=== PATIENT | female | born 1945 | race Caucasian/White ===

== ENCOUNTER 2021-04-01 09:00 | Outpatient (RCR) | payer MEDICARE, SELFPAY ==
[2021-03-25 09:13] VITALS: BP 132/82
== END 2021-05-03 08:00 | disposition home or self-care (01) ==
LOC: HO.PT 09:00
PROVIDERS: PCP Internal Medicine; Visit Provider Internal Medicine
DX: R42 Dizziness and giddiness (principal)
CPT/HCPCS: 95992; 97110; 97112; 97162

== ENCOUNTER 2021-12-22 15:55 | Outpatient (REF) | payer BC, SELFPAY ==
--- NOTE | ~2021-12-22 | US_ITS ---
EXAMINATION: US VENOUS ULTRASOUND WITH DOPPLER LOWER EXTREMITY, RIGHT CLINICAL INFORMATION: Right calf pain. COMPARISON: No similar priors. TECHNIQUE: Ultrasound of the deep veins is performed from the hip to the calf with compression sonography and color and pulse Doppler assessment. Spectral analysis with color-flow imaging is performed. FINDINGS: There is normal venous compression and respiratory variation and augmented flow. The visualized common femoral vein, superficial femoral vein, profunda femoral vein, popliteal vein, and the trifurcation region shows no evidence of deep venous thrombosis. There is a 2.9 x 0.8 x 2.3 cm right popliteal fossa Villanueva's cyst. If the patient's symptoms persist, followup ultrasound in 5 days 7 days might be of value to exclude proximal propagation from a non-visualized calf vein. US/US venous duplex LE RT IMPRESSION: No DVT demonstrated in the right lower extremity. There is a 2.9 cm right popliteal fossa Villanueva's cyst. This could be follow-up if clinically pertinent.
== END 2021-12-22 15:56 | disposition home or self-care (01) ==
LOC: HO.US 15:55
PROVIDERS: PCP Internal Medicine; Visit Provider Internal Medicine
DX: M79.661 Pain in right lower leg (principal); M71.21 Synovial cyst of popliteal space [Baker], right knee
CPT/HCPCS: 93971

== ENCOUNTER 2025-03-15 08:51 | Outpatient (REF) | payer BC, SELFPAY ==
--- NOTE | ~2025-03-15 | XR_ITS ---
CLINICAL HISTORY: M43.16 - Spondylolisthesis, lumbar region --- Additional Notes or Special Instructions: AP lateral flexion extension Exam: AP, lateral, flexion lateral, and extension lateral views of the lumbar spine. Comparison: None. Findings: Mild convex right thoracolumbar curvature with [id number] convex left mid lumbar curvature. Neutral lateral view demonstrates 13 mm of anterolisthesis of L4 on L5. There is 8 mm of retrolisthesis of T12 on L1 and 7 mm of retrolisthesis of L1 on L2. These areas of spondylolisthesis do not appreciably change with flexion or extension. No acute fracture. Severe degenerative disc disease and degenerative facet disease throughout the lower thoracic spine in the entire lumbar spine. Impression: 1. Multilevel spondylolisthesis without abnormal motion. 2. Severe multilevel degenerative change. This document has been electronically signed by: Shaquille Prado MD on 03/16/2025 08:28:23
== END 2025-03-15 08:52 | disposition home or self-care (01) ==
LOC: HO.HOSX 08:51
PROVIDERS: PCP Internal Medicine; Visit Provider Neurological Surgery
DX: M43.16 Spondylolisthesis, lumbar region (principal); M48.062 Spinal stenosis, lumbar region with neurogenic claudication
CPT/HCPCS: 72110

== ENCOUNTER 2025-03-15 08:51 | Outpatient (AMB) | payer BC, SELFPAY ==
--- OUTSIDE RECORDS SUMMARY | 2025-03-15 08:54 | XMS_ITS | Encounter Summary ---
Author Organization [facility] Address [address] [address] Phone Care Team Providers Care Doctor Of Dental Surgery Name Role Phone Manuel Del Angel MD Primary Care Provider [phone] Michele Soto MD Unavailable Abby Yoo MD Unavailable Blayne Cavanaugh MD Unavailable Encounter Details Date Type Department Care Team (Late st Contact Info) Description 03/10/2021 Procedure Pass Echo Lab [address] [place] [address] Social History Tobacco Use Types Packs/Day Years Used Date Smoking Tobacco: Former Cigarettes 0.3 22 0 02/28/1956 - 02/27/1978 Smokeless Tobacco: Never Alcohol Use Standard Drinks/Week Comments Yes 2 (1 standard drink = 0.6 oz pur e alcohol) Comments No Sex and Gender Information Value Date Recorded Sex Assigned at Female 03/09/2022 8:41 AM EDT Legal Sex Female 10:10 PM EDT Gender Identity Female 03/09/2022 8:41 AM EDT Sexual Orientation Straight 03/09/2022 8: 41 AM EDT documented as of this encounter Plan of Treatment Upcoming Encounters Date Type Department Care Team (Latest Contact Info) Description 05/06/2025 2:30 PM EDT Office Visit [facility] Internal Medicine [address] [facility] [place] [address] Manuel Del Angel MD [address] [place] [id number] 05/21/2025 9:20 AM EDT Office Visit [facility] Orthopedics & Sports Medicine [address] [place] [phone] January Seymour PA-C [address] [place] [address] Orthopedics Sports [facility] [place] [address] [email or web address] 06/14/2025 Procedure Pass OR Admitting Dept - Virtual Department [address] [place] [id number] 06/14/2025 7:30 AM EDT Hospital Encounter OR Admitting Dept - Virtual Department [address] [place] [address] Manoj Pate MD [address] [place], [place] [address]s Sports [facility] [place] [address] [email or web address] 06/14/2025 7:30 AM EDT - 06/14/2025 10:36 AM EDT Surgery OR Admitting Dept - Virtual Department [address] [place] [address] Manoj Pate MD [address] [place], [place] [address]s Sports [facility] [place] [address] [email or web address] ARTHROPLASTY TOTAL KNEE 06/27/2025 9:30 AM EDT Office Visit [facility] Orthopedics & Sports Medicine [address] [place] [phone] Aleks Sams PA-C [address] [place] [address] Orthopedics Sports [facility] [place] [address] [email or web address] 07/30/2025 9:15 AM EST Office Visit [facility] Orthopedics & Sports Medicine [address] [place] [phone] Manoj Pate MD [address] [place] [address] Orthopedics & Sports Medicine, [place] [address] [email or web address] 08/05/2025 8:30 AM EST Office Visit [facility] Internal Medicine [address] [place] [address] Manuel Del Angel MD [address] [place] [address] [email or web address] Scheduled Procedures Name Priority Associated Diagnoses Date/Ti me ARTHROPLASTY TOTAL KNEE Pain Primary osteoarthritis of left knee Genu varum of left lower extremity 06/14/2025 7:30 AM EDT documented as of this encounter Visit Diagnoses Not on filedocumented in this encounter Additional Health Concerns Infection Onset Date Last Indicated Resolved Time CoV-Risk 09/28/2021 09/28/2021 10/08/2021 1:22 AM EST CoV-Risk 05/26/2022 05/26/2022 06/06/2022 1:22 AM EDT Assessment Noted Time PHQ-2 Depression Total Score: 0 03/05/20 8:31 AM EDT documented as of this encounter Care Teams Doctor Of Dental Surgery Relationship Specialty Start Date End Date Manuel Del Angel MD [address] [place] [address] PCP - General 06/13/17 Michele Soto MD [address] [place] [phone] Rheumatology 03/04/20 Abby Yoo MD [address] [address] Obstetrics and Gynecology 10/07/22 Blayne Cavanaugh MD [address] [facility] [address] [phone] [email or web address] 04/18/23 documented as of this encounter Additional Source Comments The information contained in this document represents components of the legal health record. It is not the complete legal health record.[facility]
--- OUTSIDE RECORDS SUMMARY | 2025-03-15 08:54 | XMS_ITS | Clinical Summary ---
Author Organization [facility] Address [address] [place] [phone] Phone Care Team Providers Care Teacher Of The Deaf Name Role Phone Manuel Del Angel MD Primary Care Provider [phone] Allergies Active Allergy Reactions Criticality Noted Date Comments Atorvastatin 09/28/2021 Other reaction(s): muscle aches Codeine Nausea And Vomiting 02/24/2018 Hydrocodone-Acetaminophe n Nausea And Vomiting 01/18/2022 Hydromorphone Other (see comments) 01/22/2021 Ketorolac Nausea And Vomiting,Other (see comments) 02/24/2018 Meperidine Other (see comments) 01/22/2021 Meperidine Hcl 01/22/2021 Morphine Nausea And Vomiting 02/24/2018 Oxycodone Nausea And Vomiting,Other (see comments) 02/24/2018 Oxycodone-Acetaminophen Nausea And Vomiting Rosuvastatin 09/28/2021 Other reaction(s): muscle aches Other reaction(s): muscle aches Medications magnesium oxide (MAG-OX) 400 MG tablet Take 1 tablet by mouth 1 (one) time each day Active Arely, Zingiber officinalis, (Arely Root) 550 MG capsule 1 tab Orally Once a day Active Multiple Vitamins-Minera ls (Multivitamin Adult, Minerals,) tablet Take 1 tablet by mouth 1 (one) time each day Active Mag Oxide-Vit D3-Turmeric [id number] MG-UNIT-MG tablet Take 1 capsule by mouth 1 (one) time each day Active ketoconazole (NIZORAL) 2 % shampoo Active alpha tocopherol (VITAMIN E) 200 units capsule Take 180 Units by mouth in the morning. Active dicyclomine (BENTYL) 10 MG capsule TAKE 1-2 CAPSULES BY MOUTH EVERY 6 HOURS NEEDED 3 Active estradiol (ESTRACE) 0.1 MG/GM vaginal cream PLEASE SEE ATTACHED FOR DETAILED DIRECTIONS 3 Active Cholecalciferol (Vitamin D) 50 MCG (2000 UT) capsule Take 1 tablet by mouth 3 (three) times a week Active Diclofenac Sodium 1 % gel Apply topically Active fexofenadine (Lashawn Allergy) 180 MG tablet Take 180 mg by mouth 1 (one) time each day Active omega-3 (FISH OIL) 1200 MG capsule Take by mouth 1 (one) time each day Active Selenium 200 MCG tablet Take by mouth Activ e UNABLE TO FIND Med Name: Nutrafol 4 caps daily Active Cranberry 125 MG tablet Take 2 tablets by mouth in the morning. Active cetirizine (ZyrTEC) 5 MG chewable tablet Chew 5 mg 1 (one) time each day Active Ciclopirox 1 % shampoo USE DAILY A FACE WASH 4 Active cyanocobalamin (VITAMIN B-12) 100 MCG tablet Take 50 mcg by mouth 1 (one) time each day Active potassium citrate 10 MEQ (1080 MG) CR tablet Take 1 tablet (10 mEq total) by mouth in the morning and 1 tablet (10 mEq total) in the evening. Take with meals. 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 This is associated with sputum production. There is intermittent heartburn. She has a history of very severe heartburn, now status post nisin fundoplication with improved frequency and severity of symptoms, currently off antacids. I wonder whether ongoing acid reflux may be contributing to her symptoms. She agrees to a trial of PPI for 2 to 3 months and return visit to ENT. She would like to see a different ENT physician for a second opinion. I will also CC her campaign coordinator in case they were interested in considering repeat upper endoscopy. If symptoms do not improved with empiric PPI therapy, and if ENT evaluation is unrevealing, we could consider methacholine challenge study and additional imaging, possibly including chest and/or neck CT scans. An empiric trial of inhaler therapies, for instance ICS/LABA, could also be considered given the 12% improvement in FEV1 noted in postbronchodilator measurements, though the clinical presentation is not suggestive of asthma. Lightheadedness 07/07/2022 Overview (01/31/2023): Last Assessment & Plan: Advised to increase fluid intake when lightheaded to see if this would remedy the situation. Since the lightheadedness is episodic, she should look towards situations that might be supporting the lightheadedness for example diarrhea. She is currently being worked up by Dr. Durant with an appointment next month for lower abdominal issues. 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 Obtain pulmonary function study with DLCO pre and post bronchial dilators. Spirometry. Then referral to [facility] pulmonology for further assessment and treatment. Patient in agreement with plan. Headache 03/05/2021 Nocturia 03/05/2021 Osteopenia 03/05/2021 Pain in throat 03/05/2021 Vitamin D deficiency 03/05/2021 Medullary sponge kidney 01/23/2021 Complex renal cyst 01/23/2021 Medullary sponge kidney 01/22/2021 Renal stone 01/22/2021 H/O: artificial joint 02/27/2019 History of fundoplication 02/27/2019 Overview (01/22/2021): for GE reflux Generalized osteoarthritis 02/24/2018 Allergic rhinitis 02/24/2018 Hyperlipidemia 02/24/2018 Osteoarthritis 02/24/2018 Overview (01/31/2023): Last Assessment & Plan: Referral to [facility] orthopedics for bilateral knee pain ongoing in the setting of OA knees. Pure hypercholesterolemia 02/24/2018 Familial hypercholesterolemia 05/14/2014 Degenerative lumbar spinal stenosis 05/14/2014 Gastro-esophageal reflux disease with esophagiti s 03/27/2009 Encounters Date Type Department Care Team Description 01/14/2025 1:45 PM EDT Office Visit [facility] [place] [id number] [phone] Andrew Robledo MD Medullary sponge kidney (Primary Dx); Renal stone from Last 3 Months Immunizations Immunization Administration Dates Next Due Influenza (IM) Preservative Free 06/16/2021,07/30 Influenza Split High Dose Pr eservative Free IM 07/14/2015,05/15/2013 Influenza TIV (IM) 06/26/2014,06/12/2012 Influenza Vaccine, Quadrival ent, Adjuvanted 05/26/2020 Influenza, Quadrivalent, Pre servative Free 07/13/2019 Influenza, Trivalent, Adjuvanted 06/16/2018 Influenza, Unspecified 07/07/2022,2017,06/01/2011,06/04,06/06/2009 Plague 01/11/2016 Pneumococcal Conjugate 13-Valent 01/17/2015 Pneumococcal Polysaccharide 08/29/2008 Td, Unspecified 06/04/2010 Family History Medical History Relation Comments Heart disease Father Diabetes Mother maternal grandmo ther Hypertension Mother Relation Status Comments Father Mother Social History Tobacco Use Types Packs/Day Years Used Date Smoking Tobacco: Never Smokeless Tobacco: Never Tobacco Cessation:Counseling Given: Not Answered Alcohol Use Standard Drinks/Week Comments Yes 0 (1 standard drink = 0.6 oz pur e alcohol) twice a week Comments Unknown Sex and Gender Information Value Date Recorded Sex Assigned at Not on file Legal Sex Female 5:14 PM EST Gender Identity Not on file Sexual Orientation Not on file Last Filed Vital Signs Vital Sign Reading Time Taken Comments Blood Pressure 120/58 01/14/2025 2:02 PM EDT Pulse 84 01/14/2025 2:02 PM EDT Temperature - - Respiratory Rate - - Oxygen Saturation 96% 01/31/2023 12:53 PM EDT Inhaled Oxygen Concentration - - Weight 78 kg (172 lb) 01/14/2025 2:02 PM EDT Height 170.2 cm (5' 7 ) 01/11/2020 12:00 PM EDT Body Mass Index 26.94 01/11/2020 12:00 PM EDT Plan of Treatment Upcoming Encounters Date Type Department Care Team (Late st Contact Info) Description 01/13/2026 1:15 PM EDT Office Visit [facility] [address] [phone] Andrew Robledo MD [address] [phone] Health Maintenance Due Date Last Done Comments Hepatitis B Vaccine (1 of 3 - Risk 3-dose series) 2003 Influenza Vaccine (#1) 2025 4, 07/07/2022, 06/16/2021, Additional history exists Pneumococcal Vaccine: 50+ Years Completed 5, 08/29/2008 Pneumococcal Vaccine: Peds ( 0 to 5 Years) and At-Risk Patients (6 to 49 Years) Discontinued 01/17/2015, 08/29/2008 Insurance [facility] Care Teams Teacher Of The Deaf Relationship Specialty Start Date End Date Manuel Del Angel MD [address] [place] [address] PCP - General 09/08/20
--- NOTE | 2025-03-15 08:55 | HO.SPINEOV ---
Vital Signs 03/15/25 08:59 Height 5 ft 5 in Weight 170 lb BMI 28.3 Intake Visit Reasons: severe low back pain/sciatica/stenosis Intake Note: Ms. Rocha is here today c/o severe low back pain that runs to the buttocks. University Administrative Assistant Required: No Allergies codeine Allergy (Unknown, Verified 03/15/25 09:00) vomiting meperidine (Demerol) Allergy (Unknown, Verified 03/15/25 09:00) vomiting morphine Allergy (Unknown, Verified 03/15/25 09:00) nausea and vomiting Physical Exam Vital Signs: BMI result Body Mass Index 28.3 Assessment & Plan Assessment & Plan (1) Spondylolisthesis of lumbar region: Code(s): M43.16 - Spondylolisthesis, lumbar region Category: Medical Plan: Dear colleague Thank you for referring Magnolia Rocha to the office today with a chief complaint of back pain and sciatica. HPI: This 79-year-old previously healthy and active female developed severe pain in her buttocks, across the hips and down both legs with the left leg is more affected than the right leg since May 2024. She had a right knee replacement done and soon after that the back started to deteriorate. Her symptoms are progressive and she now is mostly housebound. She can not walk or stand for any prolonged period of time. Laying down is the best position. She sits a lot in her recliner. The pain in her left leg radiates to the outside of her thigh and outside of her lower leg and ankle. She also noticed that he trips with the left foot when she walks. She is scheduled to undergo a left knee replacement in May. The following conservative treatment options were tried without success antiinflammatories, tylenol, physical therapy, acupuncture and, cortisone shots PMH: Left shoulder replacement right knee replacement, sponge kidneys, arthritis Medications: Potassium citrate, ciclopirox, multivitamins, flaxseed, vitamin-E, vitamin-D, vitamin B12, Zyrtec, Tylenol Arthritis, ibuprofen, tracie root, turmeric Allergies: Codeine, morphine, oxycodone, ketorolac, Percocet Social history: She lives alone. Her son is her social support. Nonsmoker Physical Exam: Pleasant female. Height 5'5 weight 170 lb. Changing positions in the chair or going from sitting to standing is very painful. The pain is located across the lumbar spine into the buttocks. Flexion and extension is restricted and painful. Straight leg raise produces back pain. Motor and sensory exam are intact. Reflexes are symmetrically intact. No pathological reflexes. She walks in a flexed antalgic position. Radiological Studies: MRI done at [facility] on 08/13/2024 shows a grade 2 L4-5 spondylolisthesis with associated [id number] L4-5 spinal stenosis and severe left L4 foraminal stenosis. Dynamic lumbar x-rays obtained today confirmed the grade 2 spondylolisthesis L4-5. Impression/Plan: This 79-year-old female suffering from back pain and neurogenic claudication symptoms due to a grade 2 L4-5 spondylolisthesis and associated spinal stenosis. A simple decompression is not indicated due to the amount of back pain. She tried all forms of conservative management without success. Therefore, I offered her a minimally invasive L4-5 lumbar fusion through an oblique lumbar interbody fusion to realign the lumbar spine and to indirectly decompress the nervous structures. I described the procedure and expected postoperative course. She wants to come back for another visit with her son to discuss this option. She will return on April 05 at 15:00. I did tell her that I would prefer to do the surgery before the left knee replacement as this requires a fair amount of rehab which she is unable to do at this moment due to the spinal pathology. Thank you for allowing me to participate in your patients care. total time spent was 50 minutes in counseling ,coordination of plan, personal review of imaging, surgical decision making and subsequent plan Alfredo Rogers MD, PhD Spine Fellowship Trained Neurosurgeon Director, [facility] (2) Lumbar stenosis with neurogenic claudication: Code(s): M48.062 - Spinal stenosis, lumbar region with neurogenic claudication Category: Medical Plan: fd Orders: Orders XR lumbar spine 4V min Today M43.16 - Spondylolisthesis, lumbar region, M48.062 - Spinal stenosis, lumbar region with neurogenic claudication Coding Level of Care Code New Pt Level 4 (49359) Diagnoses Spondylolisthesis of lumbar region M43.16 Lumbar stenosis with neurogenic claudication M48.062
[2025-03-15 08:59] VITALS: BMI 28.3
== END 2025-03-15 09:34 | disposition home or self-care (01) ==
LOC: HO.HNS 08:52
PROVIDERS: PCP Internal Medicine; Visit Provider Neurological Surgery
DX: M43.16 Spondylolisthesis, lumbar region (principal); M48.062 Spinal stenosis, lumbar region with neurogenic claudication
CPT/HCPCS: 99204

== ENCOUNTER → 2025-03-15 09:42 | Outpatient (BNV) | payer BC, SELFPAY | PROVIDERS: PCP Internal Medicine; Visit Provider Radiology Diagnostic Radiology | DX: M43.16 Spondylolisthesis, lumbar region (principal) | CPT/HCPCS: 72110 ==

== ENCOUNTER → 2025-04-26 13:14 | Outpatient (BNV) | payer BC, SELFPAY | PROVIDERS: Admitting Provider Neurological Surgery; PCP Internal Medicine; Visit Provider Internal Medicine | DX: Z01.810 Encounter for preprocedural cardiovascular examination (principal) | CPT/HCPCS: 93010 ==

== ENCOUNTER 2025-05-07 06:00 | Inpatient (IN) | payer MEDICARE, SELFPAY ==
--- NOTE | 2025-04-26 | ECG_ITS ---
Test Reason : preop Blood Pressure : */* mmHG Vent. Rate : 78 BPM Atrial Rate : 78 BPM P-R Int : 160 ms QRS Dur : 72 ms QT Int : 376 ms P-R-T Axes : 40 3 23 degrees QTcB Int : 428 ms Normal sinus rhythm Minimal voltage criteria for LVH, may be normal variant ( R in aVL ) Borderline ECG No previous ECGs available Referred By: Norma Peterson Electronically Signed By: IRISH SCHAEFFER
[2025-04-26 12:05] VITALS: BP 147/74; PULSE 79; RESP 16; O2SAT 96; BMI 28.3
[2025-04-26 14:22] LABS: Hematocrit 44.5 % (37.0-47.0); Hemoglobin 15.1 g/dl (12.0-16.0); Mean Corpuscular HGB Conc 33.9 g/dl (31.0-35.0); Mean Corpuscular Hemoglobin 31.9 pg (27.0-33.0); Mean Corpuscular Volume 94.1 fL (80.0-98.0); NRBC Abs Auto 0.000 X10*3/uL (0.0-0.012); NRBC Pct Auto 0.0 /100WBC (0.0-0.2); Platelet Count 250 X10*3/uL (160-400); Red Blood Count 4.73 X10*6/uL (4.20-5.50); White Blood Count 7.0 X10*3/uL (4.8-10.8)
[2025-04-26 14:54] LABS: Anion Gap 15 (12-20); Blood Urea Nitrogen 20 mg/dL (9-16); Calcium 10.0 mg/dL (8.4-10.2); Carbon Dioxide 26 mmol/L (22-29); Chloride 104 mmol/L (96-108); Creatinine Clr Calc Pharmacy 64.7; Estimated Glomerular Filt Rate > 60; Potassium 4.2 mmol/L (3.3-5.1); Sodium 141 mmol/L (135-145)
[2025-05-07] VITALS (22 sets, daily range): BP systolic 94–157; BP diastolic 50–84; PULSE 66–86; RESP 11–18; TEMP 36.2–36.7; O2SAT 91–100; BMI 28.7; BMI 31.4
--- NOTE | ~2025-05-07 | FL_ITS ---
EXAMINATION: FL GUIDANCE ONLY HISTORY: L4-5 OLIF COMPARISON: Correlation is made with plain films of the lumbar spine dated 03/15/2025. TECHNIQUE: Fluoroscopy time: 1 minute, 23.4 seconds. Cumulative Dose: 59.227 mGy. DAP: 14.193 mGym2 Images: 6. FINDINGS: Fluoroscopic spot films of the lumbar spine demonstrate posterior fusion at L4-5 with pedicle screws, spinal stabilization rods, and an intervertebral spacer. FL/FL guidance in OR IMPRESSION: Fluoroscopy during procedure. Please see procedure report for additional information. Electronically signed by: Chucky Gibson MD 05/07/2025 10:34 AM EDT
--- OUTSIDE RECORDS SUMMARY | 2025-05-07 06:07 | XMS_ITS | Clinical Summary ---
Author Organization [facility] Address [address] [place] [phone] Phone Care Team Providers Care Patient Financial Rep Name Role Phone Manuel Del Angel MD Primary Care Provider [phone] Allergies Active Allergy Reactions Criticality Noted Date [...] time each day Active Mag Oxide-Vit D3-Turmeric [id number] MG-UNIT-MG tablet Take 1 capsule by mouth [...] second opinion. I will also CC her electronics processor in case they were interested in considering [...] post bronchial dilators. Spirometry. Then referral to [facility] pulmonology for further assessment and treatment. Patient [...] (01/31/2023): Last Assessment & Plan: Referral to [facility] orthopedics for bilateral knee pain ongoing in the setting of OA knees. Pure hypercholesterolemia 02/24/2018 Familial hypercholesterolemia 05/14/2014 Degenerative lumbar spinal stenosis 05/14/2014 Gastro-esophageal reflux disease with esophagiti s 03/27/2009 Immunizations Immunization Administration Dates Next Due Influenza [...] Office Visit [facility] [address] [facility] [address] [place] [phone] Andrew Robledo MD [address] [facility] [address] [place] [phone] Health Maintenance Due Date Last Done Comments Hepatitis B Vaccine (1 of 3 - Risk 3-dose series) 2003 Influenza Vaccine (#1) 2025 4, 07/07/2022, 06/16/2021, Additional history exists Pneumococcal Vaccine: 50+ Years Completed 5, 08/29/2008 Pneumococcal Vaccine: Peds ( 0 to 5 Years) and At-Risk Patients (6 to 49 Years) Discontinued 01/17/2015, 08/29/2008 Insurance [facility] Care Teams Patient Financial Rep Relationship Specialty Start Date End Date Manuel Del Angel MD [address] [place] [id number] PCP - General 09/08/20
--- OUTSIDE RECORDS SUMMARY | 2025-05-07 06:07 | XMS_ITS | Encounter Summary ---
Author Organization [facility] Address [address] [facility] [address] [place] [phone] Phone Care Team Providers Care Occupancy Specialist Name Role Phone Manuel Del Angel MD Primary Care Provider Michele Soto MD Unavailable Abby Yoo MD Unavailable Blayne Cavanaugh MD Unavailable [phone] Encounter Details Date Type Department Care Team (Late Contact Info) Description 03/10/2021 Procedure Pass Echo Lab [place] [place] [address] Social History Tobacco Use Types Packs/Day Years [...] Encounters Date Type Department Care Team (Late Contact Info) Description 06/14/2025 Hospital Encounter OR Admitting Dept - Virtual Department [address] [place] [address] Manoj Pate MD [address] [place] [address] Orthopedics & Sports Medicine, [place] [address] 06/14/2025 Procedure Pass [place] Admitting Dept - Virtual Department [address] [place] [address] 08/05/2025 8:30 AM EST Office Visit [facility] Internal Medicine [address] [place] [address] Manuel Del Angel MD [address] [place] [address] [email or web address] Scheduled Procedures Name Priority Associated Diagnoses Date/Ti me ARTHROPLASTY TOTAL KNEE Pain Primary osteoarthritis of left knee Genu varum of left lower extremity documented as of this encounter Visit Diagnoses Not on filedocumented in this encounter Additional Health Concerns Infection Onset Date Last Indicated Resolved Time CoV-Risk 09/28/2021 09/28/2021 10/08/2021 1:22 AM EST CoV-Risk 05/26/2022 05/26/2022 06/06/2022 1:22 AM EDT Assessment Noted Time PHQ-2 Depression Total Score: 0 03/05/20 8:31 AM EDT documented as of this encounter Care Teams Occupancy Specialist Relationship Specialty Start Date End Date Manuel Del Angel MD [address] [place] [address] PCP - General 06/13/17 Michele Soto MD [address] [place] [address] Rheumatology 03/04/20 Abby Yoo MD [address] [address] Obstetrics and Gynecology 10/07/22 Blayne Cavanaugh MD [address] [facility] [address] [place] [address] [email or web address] 04/18/23 documented as of this encounter Additional Source Comments The information contained in this document represents components of the legal health record. It is not the complete legal health record.[facility]
--- OUTSIDE RECORDS SUMMARY | 2025-05-07 06:07 | XMS_ITS | Encounter Summary ---
Author Organization [facility] Address [address] [facility] [address] [place] [address] Phone Care Team Providers Care Limousine [employer]se Upholsterer Name Role Phone Manuel Del Angel MD Primary Care Provider [phone] Michele Soto MD Unavailable [phone] Abby Yoo MD Unavailable [phone] Blayne Cavanaugh MD Unavailable [phone] Encounter Details Date Type Department Care Team (Latest Contact Info) Description 07/12/2022 Transcribe Orders [facility] [address] [place] [address] Cooper España MD [address] [place] [address] [email or web address] Advice given about 2019 novel coronavirus by telephone (Primary Dx) Social History Tobacco Use Types Packs/Day Years Used Date Smoking Tobacco: Former Cigarettes 0.3 6 0 02/28/1956 - 02/27/1962 Smokeless Tobacco: Never Comments:smoked socially Alcohol Use Standard Drinks/Week Comments Yes 2 (1 standard drink = 0.6 oz pur e alcohol) Child or Family Care Answer Date Record ed Do you have problems with on e of the following making it difficult for you to work, study, or receive health care? No 03/09/2022 Education Answer Date Recorded Are you interested in help w ith more adult education (for example, completing high school, GED, job training, learning the [place] language, technical skills, or developing parenting skills)? No 03/09/2022 Food Answer Date Recorded Within the past 6 months we worried whether our food would run out before we got money to buy more. Never True 03/09/2022 Within the past 6 months the food we bought just didn't last and we didn't have enough money to get more. Never True Residential Stability Answer Date Recor ded What is your housing situation today? I have shira sing 03/09/2022 How many times have you move d in the past 12 months? Zero (I did not move) 03/09/2022 Paying for Meds Answer Date Recorded Do you have trouble paying for medicines? No 03/09/2022 Paying Utility Bills Answer Date Record ed Do you have trouble paying your heating or elect ricity bill? No 03/09/2022 Transportation Answer Date Recorded Has the lack of transportati on kept you from medical appointments or from getting medications? No 03/09/2022 Unemployment Answer Date Recorded Are you currently unemployed or working on a part-time or temporary basis, and looking for work? No 03/09/2022 Comments No Sex and Gender Information Value Date Recorded Sex Assigned at Female 03/09/2022 8:41 AM EDT Legal Sex Female 10:10 PM EDT Gender Identity Female 03/09/2022 8:41 AM EDT Sexual Orientation Straight 03/09/2022 8: 41 AM EDT documented as of this encounter Plan of Treatment Upcoming Encounters Date Type Department Care Team (Late st Contact Info) Description 06/14/2025 Hospital Encounter OR Admitting Dept - Virtual Department [address] [place] [address] Manoj Pate MD [address] [place] [address] Orthopedics & Sports Medicine, [facility] [place] [address] 06/14/2025 Procedure Pass [place] Admitting Dept - Virtual Department [address] [place] [address] 08/05/2025 8:30 AM EST Office Visit [facility] Internal Medicine [address] [place] [address] Manuel Del Angel MD [address] [place] [address] [email or web address] Scheduled Procedures Name Priority Associated Diagnoses Date/Ti me ARTHROPLASTY TOTAL KNEE Pain Primary osteoarthritis of left knee Genu varum of left lower extremity documented as of this encounter Results * COVID-19 PCR Order (07/27/2022 9:48 AM EST) COVID-19 Comment [id number] [facility] COVID Testing Status Specimen received in analyzing lab. Results should be available within [address] [facility] Other 07/27/2022 9:48 AM EST 07/27/2022 11:39 AM EST Cooper España MD BODY FLUIDS AND STOOLS ORDERABLE S Final Result Performing Organization Address City/State/[facility] Co de Phone Number [facility] [address] [place] [phone] documented in this encounter Visit Diagnoses Diagnosis Advice given about 2019 novel coronavirus by telephone- Primary documented in this encounter Additional Health Concerns Assessment Noted Time PHQ-2 Depression Total Score: 0 03/09/20 22 8:33 AM EDT documented as of this encounter Care Teams [employer] Upholsterer Relationship Specialty Start Date End Date Manuel Del Angel MD [address] [place] [address] [email or web address] PCP - General 06/13/17 Michele Soto MD [address] [place] [address] Rheumatology 03/04/20 Abby Yoo MD [address] [address] Obstetrics and Gynecology 10/07/22 Blayne Cavanaugh MD [address] [address] [email or web address] 04/18/23 documented as of this encounter Additional Source Comments The information contained in this document represents components of the legal health record. It is not the complete legal health record.[facility]
--- OUTSIDE RECORDS SUMMARY | 2025-05-07 06:07 | XMS_ITS | Clinical Summary ---
Author Organization [facility] Address [address] [address] Phone Care Team Providers Care Embroidery Specialist Name Role Phone Manuel Del Angel MD Primary Care Provider Michele Soto MD Unavailable Abby Yoo MD Unavailable [phone] Blayne Cavanaugh MD Unavailable Allergies Active Allergy Reactions Criticality Noted Date Comments Atorvastatin 09/28/2021 Other reaction(s): muscle aches Codeine Nausea and/or Vomiting 02/24/2018 Hydrocodone-Acetaminoph en Nausea And Vomiting 01/18/2022 Meperidine Other (See Comments) 01/22/2021 Morphine Nausea and/or Vomiting 02/24/2018 Oxycodone Nausea and/or Vomiting 02/24/2018 Oxycodone-Acetaminophen Nausea And Vomiting Rosuvastatin 09/28/2021 Other reaction(s): muscle aches Ketorolac Nausea and/or Vomiting 02/24/2018 Medications potassium citrate (UROCIT-K) 10 mEq SR tablet Take 1 tablet by mouth 2 (two) times a day with meals. Active Medication-Free Text Senior Multivitamin Plus Tablet, Si TAB Orally Once a day Active cholecalciferol (VITAMIN D3) 25 MCG (1,000 unit) tablet Take 2,000 Units by mouth as directed. 2000 units 1-3 x a week Active vitamin E 200 UNIT capsule Take 180 Units by mouth daily. Active carboxymethylce llulose (REFRESH PLUS) 0.5 % Dpet Place 1 drop into each eye 3 (three) times a day as needed. Active Medication-Free Text Take 20 g by mouth daily. [employer] n Active magnesium citrate 125 mg Cap Take 250 mg by mouth nightly at bedtime. Active FLAXSEED OIL ORAL Take 1 capsule by mouth nightly at bedtime. Active Medication-Free Text nutrafull Active digestive enzymes combo no.7 Cap Take 1 capsule by mouth daily. Active gabapentin (NEURONTIN) 100 MG capsuleIndicati ons:Acute low back pain with sciatica, sciatica laterality unspecified, unspecified back pain laterality Take 2 capsules (200 mg total) by mouth 3 (three) times a day. 180 capsule 1 4 Active Additional Information Patient taking differently: 300 mgOral 3 times daily, Reported on 08/15/2024 acetaminophen (TYLENOL) 325 mg tablet Take 650 mg by mouth every 6 (six) hours as needed. Active ciclopirox (LOPROX) 1 % shampoo USE DAILY A FACE WASH 4 Active ketoconazole 2 % cream APPLY TWICE DAILY TO AFFECTED FLAKY AREAS ON THE FACE NEEDED UNTIL IMPROVED. 4 Active Active Problems Problem Noted Date Diagnosed Date Genu varum of left lower extremity 07/17/2024 S/P total knee replacement, right 12/05/2023 Irritable bowel syndrome with diarrhea 4 Large liver 10/25/2023 Vocal cord dysfunction 06/07/2023 Assessment & Plan (08/11/2023 9:02 AM EST): Advised that she follow-up with ENT if interested. Assessment & Plan (06/07/2023 3:18 PM EDT): I continue to suspect vocal cord dysfunction or laryngeal tension. Agree with ENT evaluation, and I strongly recommended that the patient call back Dr. Evans's office to schedule follow-up for stroboscopy and request a referral to speech therapy. Sweating increase 05/11/2023 Assessment & Plan (02/22/2024 9:50 AM EDT): Patient with a constellation of symptoms, excessive sweating, fatigue, headaches, change in hair and nails. Recent cortisol level in February 2023 was within normal limits. Her TSH was also within normal limits at that time. Unclear etiology however concern for adrenal insuff vs pituitary adenoma vs pheochromocytoma -Obtain labs TSH, free thyroxine, a.m. cortisol, ACTH, growth hormone, and prolactin, estrogen and vitamin B12, IGF-1 -24 hour urinary collection for catecholamines and metanephrines -free metanephrine Assessment & Plan (10/26/2023 5:13 PM EST): H/o night sweats/hot flashes and flushing. Evaluated by endocrinology and [employer]IREMENT VILLAGE MANAGER. Work-up unrevealing. Thyroid function and cortisol have been normal. Per Dr. Loaiza, low clinical suspicion for underlying endocrinopathy. Assessment & Plan (05/11/2023 1:36 PM EDT): States is improved after she started guyanese flower pollen per RETIREMENT VILLAGE MANAGER. We discussed her neg quant gold for Tb and re fto pulm for her OMSS Recurrent UTI 01/31/2023 Primary osteoarthritis of left knee 09/30/2022 Assessment & Plan (10/25/2023 10:05 PM EST): Planned for right TKA on 01/25/24 by . Sensation of lump in throat 09/09/2022 Overview (10/25/2023): Last Assessment & Plan: The patient's primary [...] second opinion. I will also CC her rotary cutter in case they were interested in considering [...] clinical presentation is not suggestive of asthma. Assessment & Plan (10/26/2023 4:54 PM EST): H/o globus sensation, or sensation of something in her throat for the past 4 years. This is associated with sputum production and a cough. There is intermittent heartburn. She has a history of very severe heartburn, now status post Josue fundoplication with improved severity of symptoms, off PPI or antacids. She has been evaluated by /pulmonology (PFT's normal), ENT/(office laryngoscopy normal), and Gastroenterology (trial of Protonix x 6 weeks), Neck CT showed no evidence of any symbiotic or tracheal narrowing. Possible etiology is vocal cord dysfunction. Patient does not wish to pursue speech therapy. Assessment & Plan (09/09/2022 1:53 PM EST): The patient's primary complaint today is of [...] second opinion. I will also CC her rotary cutter in case they were interested in considering [...] not suggestive of asthma. Lightheadedness 07/07/2022 Overview (10/25/2023): Last Assessment & Plan: Advised to increase fluid intake when lightheaded to see if this would remedy the situation. Since the lightheadedness is episodic, she should look towards situations that might be supporting the lightheadedness for example diarrhea. She is currently being worked up by Dr. Durant with an appointment next month for lower abdominal issues. Assessment & Plan (10/26/2023 5:28 PM EST): Longstanding intermittent mild lightheadedness/dizziness attributed to low BP, with previous cardiology, pulmonology and neurology work-up unrevealing. Patient reports that he BP typically runs low, around 100 systolic. Recommend adequate hydration. Monitor for orthostatic hypotension perioperatively. Assessment & Plan (07/07/2022 8:43 AM EST): Advised to increase fluid intake when lightheaded to see if this would remedy the situation. Since the lightheadedness is episodic, she should look towards situations that might be supporting the lightheadedness for example diarrhea. She is currently being worked up by Dr. Durant with an appointment next month for lower abdominal issues. Suprapubic pain 01/18/2022 Assessment & Plan (04/09/2024 9:09 AM EDT): Patient seen by her urologist and has had an ultrasound of her bladder with no findings. No urinary symptoms. Patient has had a history of UTIs in the past with her last 1 being in June of last year. On physical exam she has noted to have pain over the suprapubic region. She does have a closed cervix. And her recent change in her hormone levels I would like to obtain -Transvaginal ultrasound to look at the endometrial lining Osteopenia 03/05/2021 Chronic nonintractable headache 03/05/2021 Assessment & Plan (04/09/2024 9:08 AM EDT): Her headaches continue however she has noted to have differences in her labs from 1 month ago with regards to her estradiol/estrone. Her LH and FSH also noted 1 was luteal/ovulation phase and the other 1 was postmenopausal. Of note she does have a closed cervix therefore I wonder if her headaches could be hormonal. She has had labs drawn for pituitary adenoma which were within normal limits. -I have advised that she try ibuprofen 400 mg with food. -We will obtain an MRI brain MOSS (dyspnea on exertion) 03/05/2021 Assessment & Plan (10/26/2023 5:29 PM EST): Former smoker (quit >60 years ago). Mild long-standing MOSS, which patient reports occurs if taking stairs too quickly (which she does multiple times daily in her home). She follows with pulmonology, last seen by on 08/11/23 for follow-up of abnormal chest CT. Repeat Chest CT on 07/29/23 showed appropriate interval clearing of inflammatory process in the right middle lobe. No indication for further CT follow-up. Assessment & Plan (05/11/2023 1:35 PM EDT): MOSS continues- Chest CT was reviewed today with her. Also reviewed that her CRP was mildly elevated, corroborating her inflammation. Her quant Gold was NEG for Tb. The cause of her s/s is not clear- She was ref to pulm by pcp. She is advised if she does not hear from us regarding this referral to call us back by 05/19 to ask about status. She is agreeable to the plan Assessment & Plan (07/07/2022 8:42 AM EST): Its mainly dyspnea on exertion and its unclear what is causing but could be an obstructive process. Obtain pulmonary function study with DLCO pre and post bronchial dilators. Spirometry. Then referral to [facility] pulmonology for further assessment and treatment. Patient in agreement with plan. Complex renal cyst 01/23/2021 Renal stone 01/22/2021 History of left shoulder replacement 02/27/2019 Allergic rhinitis 02/24/2018 Hyperlipidemia 02/24/2018 Assessment & Plan (10/26/2023 5:02 PM EST): H/o pure hypercholesterolemia. Lab work from 03/23/23 shows cholesterol 330, LDL 231, Triglycerides 186. She has familial hypercholesterolemia, not on medication, was not tolerant of statin and chooses to remain off a statin or pursue alternative medical management. Encouraged adherence to low cholesterol diet. Generalized osteoarthritis 02/24/2018 Degenerative lumbar spinal stenosis 05/14/2014 Medullary sponge kidney Assessment & Plan (10/26/2023 5:05 PM EST): Follows with nephrology, Dr. Andrew Robledo in [place] for medullary sponge kidney for which she takes potassium citrate 10 mEq PO BID. Current Cr 0.80, eGFR 74. Recommend to avoid NSAID's and nephrotoxic medications, maintain adequate hydration, renally dose morphine. Diaphoresis Assessment & Plan (03/27/2024 3:51 PM EDT): 78 y.o. woman with onset of diaphoresis last Spring. Started within a few weeks of a steroid injection. Reports symptoms are distinct from menopausal hot flashes. Symptoms had improved when I had seen her in June, so further testing was not advised. She magaña had a recurrence of symptoms, which have persisted over the past few months. She had received a steroid injection in the contralateral knee when she had her TKR, so certainly possible that steroid injection could be playing a role. Testing to date has otherwise been unrevealing for other hormonal causes of sweating (including TFTs, pheo, IGF). She is concerned @ estrone/estradiol levels being in a premenopausal range based on lab reports when she is years after menopause. Discussed that estrogens are made by ovaries, adrenals & adipose tissues and think her levels are not concerning in a menopausal woman. She has had some ongoing suprapubic pain & has had some evaluation (? Laparoscopy) for fluid in uterus . ? If should have further imaging via u/s given previous CT scan (03/2023) showing mildly thickened endometrium. Apparently pantograph setter did not feel she needed further evaluation based on previous testing. Will repeat labs & include LH/FSH to make sure they are appropriately elevated for menopause. Will communicate w/ PCP & if she should have imaging of her head given pressure/pulsating sensation. Assessment & Plan (07/06/2023 2:03 PM EST): 77 y.o. woman w/ multiple issues. Onset of flushing in Spring, sounds as if occurred within a few weeks of a steroid injection. Symptoms are distinct from menopausal hot flashes. She recalls no associated symptoms with episodes. Symptoms have improved w/ change back to previous anti-histamine & addition of guyanese flower pollen, recommended by pantograph setter, which is supposed to help with hot flashes. Testing to date has otherwise been unrevealing, other than for a high CRP & pulmonary nodules, which appear inflammatory, has follow up CT scan coming up. Thyroid function & cortisol have been normal. She has also had numerous intercurrent UTIs/courses of antibiotics. I have a low clinical suspicion for underlying endocrinopathy & given symptoms have improved, would not advise any further endocrinologic evaluation at the present time. I have asked her to let me know if symptoms recur & we can re-evaluate need for further hormonal testing. Resolved Problems Problem Noted Date Diagnosed Date Resolved Date Preop examination 10/26/2023 02/22/2024 Assessment & Plan (10/26/2023 5:49 PM EST): 78 year old patient of Dr. Del Angel with planned right total knee replacement on 01/25/24. Procedure risk is intermediate. Patient denies symptoms associated with acute coronary syndromes including unstable or severe angina, ME within 1 month, severe CHF, high grade arrhythmia or symptomatic valvular disease. Medical risk assessment at the surgical optimization clinic are as follows. YADAV cardiovascular risk score is 0.2 % risk of myocardial infarction or cardiac arrest, intraoperatively or up to 30 day post-operatively. If <1%, no further cardiac work-up recommended. STOP BANG score shows 3 points indicating an intermediate risk of sleep apnea. DASI score was 31.45 points, able to achieve at least 6.61 METS. If DASI >18, no further cardiac testing recommended. RCRI score was 0.4 % risk for cardiovascular event including myocardial infarction, pulmonary edema, arrhythmia, cardiac arrest or complete heart block. This reflects very low risk on the scale. Patient's risk for major adverse cardiac events is low. This meets ACC/AHA guidelines for proceeding to non-cardiac surgery without additional testing. She does cardiac risk factor of familial hypercholesterolemia, not on medication; this was discussed with the patient who understands that this is a modifiable risk factor and chooses to remain off a statin or pursue alternative medical management. She remains independent and active, climbs flight of stairs in her home multiple times daily with some baseline mild MOSS, denies any anginal symptoms. She was seen by cardiology/ in 2020 for some dizziness, mild MOSS and complaint of some tightness in her throat. ENT work-up was unremarkable. Echocardiogram from 04/03/2021 showed: normal left ventricle function with EF 60- 65% with no evidence of wall motion abnormalities, no aortic stenosis or regurgitation, trace mitral regurgitation. 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 She had an isolated episode of chest pain on 08/16/2022, presented to [facility] ED with negative cardiac work-up: high-sensitivity troponin less than 6, EKG does not show any evidence of ischemia. Chest x-ray normal. States it was likely anxiety due to high stress at that time, has not had any chest pain since. Blood work from 09/20/23 shows a hemoglobin A1c of 5.6%. CBC and BMP are unremarkable with a creatinine of 0.80 and eGFR 74. EKG from 09/30/23 shows normal sinus rhythm. Normal ECG with HR 88 bpm, Qtc 423 ms. There is no evidence of acute or prior ischemia. Will clarify with if patient needs to return for preop pulmonary evaluation (she was recently seen in Jul 2023). The patient can otherwise proceed to the intended procedure without further work-up. She should have standard DVT and antibiotic prophylaxis. Recommend multimodal analgesia (NSAIDs, acetaminophen, gabapentin, regional nerve blocks) given patient history of severe nausea/vomiting with opioids. The patient was instructed to discontinue use of any NSAIDs, fish oil, turmeric, herbal supplements and multivitamins for 10 days before surgery as these could increase the risk of bleeding complications. The patient has the following relative contraindications to same day discharge following joint replacement surgery: advanced age, 78 years, lives alone, h/o PONV. Diarrhea 10/25/2023 10/25/2023 Fluid in endometrial cavity 10/25/2023 10/25/2023 Lower abdominal pain 10/25/[address] 06/07/2023 02/22/2024 Assessment & Plan (08/11/2023 9:03 AM EST): The small focus of inflammatory tree-in-bud opacities has completely resolved on the recent CT scan, which is otherwise stable. In this context, there is no indication for further longitudinal CT follow-up. Assessment & Plan (06/07/2023 3:19 PM EDT): Images were reviewed in detail with the patient. The minimal tree-in-bud opacities are likely inflammatory. We agreed to repeat a chest CT scan in 3 months and reconvene thereafter. 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 No longer on PPI or heartburn medication. Osteoarthritis 02/24/2018 10/25/2023 Assessment & Plan (07/07/2022 8:42 AM EST): Referral to [facility] orthopedics for bilateral knee pain ongoing in the setting of OA knees. Pure hypercholesterolemia 02/24/2018 Familial hypercholesterolemia 05/14/2014 10/25/2023 Gastroesophageal reflux dise ase with esophagitis 03/27/2009 10/25/2023 Gastro-esophageal reflux dis ease with esophagitis 03/27/2009 10/25/2023 Encounters Date Type Department Care Team Description 03/18/2025 Orders Only [facility] Internal Medicine [address] [place] [address] Provider, MD Yue from Last 3 Months Immunizations Immunization Administration Dates Next Due INFLUENZA, SPLIT VIRUS, TRIVALENT PF 08/17/2016 INFLUENZA, SPLIT VIRUS, TRIV ALENT W/ PRESERVATIVE IM 06/29/2018,06/26/2014,06/12/2012 Influenza High-Dose Quadriva lent Preservative Free IM 07/05/2023,07/07/2022,06/16/2021 Influenza High-Dose Trivalen t Preservative Free IM 06/07/2024,07/14/2015,05/15/2013 Influenza Quadrivalent Adjuv anted Preservative Free IM 05/26/2020 Influenza Quadrivalent Preservative Free IM 06/29 Influenza Trivalent Adjuvant ed Preservative free IM 06/16/2018 Influenza, Unspecified Formulation 06/01/2011,,06/06/2009 Plague 01/11/2016 Pneumococcal conjugate PCV13 01/17/2015 Pneumococcal polysaccharide PPSV23 08/29/2008 Td, unspecified formulation 06/04/2010 Family History Medical History Relation Comments Epilepsy Brother Melanoma Daughter Heart attack Father COPD Half-Brother Cancer Mother Hypertension Sister Hypertension Son Lung disease Neg Hx Relation Status Comments Brother (Age 62) Daughter Alive Father (Age 56) ME Half-Brother Alive Mother (Age 89) THROAT CANCER Sister Alive Son Alive Social History Tobacco Use Types Packs/Day Years Used Date Smoking Tobacco: Former Cigarettes 0.1 6 0 02/28/1956 - 02/27/1962 Smokeless Tobacco: Never Tobacco Cessation:Counseling Given: Not Answered Comments:smoked socially Alcohol Use Standard Drinks/Week Comments Yes 2 (1 standard drink = 0.6 oz pur e alcohol) sometimes but not always Home Health Assessment: Transportation Answer Date Recorded Lack of Transportation (Medical) No 12/21/2023 Lack of Transportation (Non-Medical) No 12/21/2023 Patient Unable or Declines to Respond No 12/21/2023 Child or Family Care Answer Date Record ed Do you have problems with on e of the following making it difficult for you to work, study, or receive health care? No 06/05/2024 Education Answer Date Recorded Are you interested in more education? Not on wang e 03/09/2024 Are you concerned about learning? Not on file 03/09/2024 No 03/09/2024 No 03/09/2024 Food Answer Date Recorded Within the past 6 months we worried whether our food would run out before we got money to buy more. Never True 06/05/2024 Within the past 6 months the food we bought just didn't last and we didn't have enough money to get more. Never True Residential Stability Answer Date Recor ded What is your housing situation today? I have shira mendez 06/05/2024 How many times have you move d in the past 12 months? Zero (I did not move) 06/05/2024 Paying for Meds Answer Date Recorded Do you have trouble paying for medicines? No 06/05/2024 Paying Utility Bills Answer Date Record ed Do you have trouble paying your heating or elect ricity bill? No 06/05/2024 Transportation Answer Date Recorded Has the lack of transportati on kept you from medical appointments or from getting medications? No 06/05/2024 Unemployment Answer Date Recorded Are you currently unemployed or working on a part-time or temporary basis, and looking for work? No 03/09/2022 Digital Access Answer Date Recorded No 06/05/2024 Yes 06/05/2024 Do you have reliable internet access at home? Ye s 06/05/2024 Do you have a device (e.g., phone, tablet, computer) with a working camera? Yes 06/05/2024 Intimate Partner Violence Answer Date R ecorded Are you denied basic needs s uch as food, clothing, or medical care? No 06/27/2024 In the past 12 months have y ou been in a relationship with a person who hurts, threatens, or tries to control you? No 06/27/2024 Are you denied basic needs s uch as food, clothing, or medical care? No 06/27/2024 In the past 12 months have y ou been in a relationship with a person who hurts, threatens, or tries to control you? No 06/27/2024 Comments No Sex and Gender Information Value Date Recorded Sex Assigned at Female 03/09/2022 8:41 AM EDT Legal Sex Female 10:10 PM EDT Gender Identity Female 03/09/2022 8:41 AM EDT Sexual Orientation Straight 03/09/2022 8: 41 AM EDT Last Filed Vital Signs Vital Sign Reading Time Taken Comments Blood Pressure 136/80 08/15/2024 3:19 PM EST Pulse 88 08/15/2024 3:19 PM EST Temperature 36.2 C (97.2 F) 06/27/2024 8:25 AM EDT Respiratory Rate 18 06/27/2024 8:25 AM EDT Oxygen Saturation 96% 08/15/2024 3:19 PM EST Inhaled Oxygen Concentration - - Weight 78.9 kg (174 lb) 08/15/2024 3:19 PM EST Height 165 cm (5' 4.96 ) 08/15/2024 3:19 PM EST Body Mass Index 28.99 08/15/2024 3:19 PM EST Plan of Treatment Upcoming Encounters Date Type Department Care Team (Late st Contact Info) Description 06/14/2025 Hospital Encounter OR Admitting Dept - Virtual Department [address] [place] [id number] Manoj Pate MD [address] [place] [address] Orthopedics & Sports Medicine, [facility] [place] [address] 06/14/2025 Procedure Pass OR Admitting Dept - Virtual Department [address] [place] [id number] 08/05/2025 8:30 AM EST Office Visit [facility] Internal Medicine [address] [place] [address] Manuel Del Angel MD [address] [place] [address] [email or web address] Scheduled Procedures Name Priority Associated Diagnoses Date/Ti me ARTHROPLASTY TOTAL KNEE Pain Primary osteoarthritis of left knee Genu varum of left lower extremity Health Maintenance Due Date Last Done Comments ZOSTER VACCINES (1 of 2) 1993 RSV VACCINE (1 - 1-dose 75+ series) 2018 Adult Td,Tdap Booster 06/04/2020 06/04/2010 INFLUENZA VACCINE (#1) 2025 , 07/05/2023, 07/07/2022, Additional history exists COVID-19 VACCINE (2023- season) 2025 DEPRESSION SCREENING 06/05/2025 06/05/2024 PNEUMOCOCCAL VACCINES (50+ years) Completed 01/17/2015, 08/29/2008 OSTEOPOROSIS SCREENING INITIAL (ONE-TIME) Completed 05/17/2022, 04/07/2018 HEPATITIS A VACCINES Aged Out No long er eligible based on patient's age to complete this topic HIB VACCINES Aged Out No longer eligi ble based on patient's age to complete this topic MENINGOCOCCAL VACCINES (ACWY) Aged Out No longer eligible based on patient's age to complete this topic MENINGOCOCCAL VACCINES (B) Aged Out N o longer eligible based on patient's age to complete this topic Medical Devices Implanted Type Area Rad Technologist Device Identifier Shelf Expiration Date Model / Serial / Lot Prosthetic Joint Left Shoulder Prosthetic Joint Left: Shoulder Cement Bone 1x40 Standard - [id number] Implanted:Qt y: 1 on 12/05/2023 by Manoj Pate MD at [facility] Right: Knee [employer] [id number] 03/28/2026 [id number] / / [id number] F8 Box Component 67.5mm Femoral Knee V[employer]ok [place] Posterior Stabilized Open Cemented Right - [id number] Implanted:Qt y: 1 on 12/05/2023 by Manoj Pate MD at [facility] Right: Knee [employer] [id number] 07/30/2033 [id number] / / [id number] Knee Implant Component 34x8.5mm Prosthesis Patellar Vanguard Series A Asymmetric 3 Peg - [id number] Implanted:Qt y: 1 on 12/05/2023 by Manoj Pate MD at [facility] Right: Knee KIKI [employer] 04/28/2027 [id number] / / [id number] Knee Tray 71mm Plate Bone Primary Vanguard [place] I Beam Revision Interlock Cemented - [id number] Implanted:Qt y: 1 on 12/05/2023 by Manoj Pate MD at [facility] Right: Knee [employer] [id number] / / [id number] Knee Insert 71 95n20mn Bearing Thania Stabilized - [id number] Implanted:Qt y: 1 on 12/05/2023 by Manoj Pate MD at [facility] Right: Knee [employer] [id number] 11/01/2028 [id number] / / [id number] Procedures Procedure Name Priority Date/Time Associated Diagnosis Comments OUTSIDE IMAGING Routine 03/15/2025 10:52 AM EDT BD DXA MONITORING Routine 05/17/2022 12: 46 PM EDT Localized osteoporosis without current pathological fracture from Last 3 Months or Most Recently Relevant to Health Maintenance Results * Outside Imaging Report Only (03/15/2025 10:52 AM EDT) Historical Provider IMG XR CHEST Final Res ult * DXA Monitoring (05/17/2022 12:46 PM EDT) Anatomical Region Laterality Modality Bone Density Bone Density Manuel Del Angel MD IMG BD BONE DENSITY DEXA Jaqui l Result from Last 3 Months or Most Recently Relevant to Health Maintenance [place] [facility] MEDICARE PPO BLUE REPLACEMENT [facility] MEDICARE PPO BLUE REPLACEMENT [facility] MEDICARE PPO BLUE REPLACEMENT [facility] MEDICARE PPO BLUE REPLACEMENT [facility] MEDICARE PPO BLUE REPLACEMENT Member Subscriber Plan / Payer ( fective 2008-Present) Name:Magnolia Rocha Relation to Subscriber:Self Name:Magnolia Rocha Payer ID:[id number] (NAIC) Type:Medicare Address: [facility] [id number] [place], [place] [facility] MEDICARE PPO BLUE REPLACEMENT [place] BLUE REPLACEMENT Advance Directives For more information, please contact: [phone] (9AM - 5PM [facility], Tuesday-Tuesday) Documents on File Type Date Recorded Patient Roll Tension Tester Expl anation Healthcare Proxy 12/07/2023 3:18 PM * Full Code (Latest Code Status on File) Date Activated Date Inactivated Comments 12/05/2023 11:36 AM Question Answer Comments Code Status Confirmed With: Patient Care Teams Embroidery Specialist Relationship Specialty Start Date End Date Manuel Del Angel MD [address] [place] [address] PCP - General 06/13/17 Michele Soto MD [address] [place] [address] Rheumatology 03/04/20 Abby Yoo MD 3300 [facility] 4[address] [place] [address] Obstetrics and Gynecology 10/07/22 Blayne Cavanaugh MD 100 [facility] [address] [place] [address] [email or web address] Urology 04/18/23 Additional Source Comments The information contained in this document represents components of the legal health record. It is not the complete legal health record.[facility]
--- OUTSIDE RECORDS SUMMARY | 2025-05-07 06:07 | XMS_ITS | Encounter Summary ---
Author Organization [facility] Address [address] [employer] [facility] [address] [place] [address] Phone Care Team Providers Care Sort Operations Supervisor Name Role Phone Manuel Del Angel MD Primary Care Provider [phone] Michele Soto MD Unavailable [phone] Abby Yoo MD Unavailable Blayne Cavanaugh MD Unavailable Encounter Details Date Type Department Care Team (Late st Contact Info) Description 04/13/2024 Procedure Pass [facility], [address] [address] Social History Tobacco Use Types Packs/Day Years [...] 03/09/2022 Digital Access Answer Date Recorded No 01/18/2023 No 01/18/2023 Reliable internet access at home? Not on file 01/18/2023 Device with a working camera? Not on file Comments No Sex and Gender Information Value [...] Encounter OR Admitting Dept - Virtual Department [address] [place] [address] Manoj Pate MD [address] [place] [address] Orthopedics & Sports Medicine, [place] [address] 06/14/2025 Procedure Pass [place] Admitting Dept - Virtual Department [address] [place] [address] 08/05/2025 8:30 AM EST Office Visit [facility] Internal Medicine 40 [place] [address] Manuel Del Angel MD 40 [place] [address] [email or web address] Scheduled Procedures Name Priority Associated Diagnoses Date/Ti me ARTHROPLASTY TOTAL KNEE Pain Primary osteoarthritis of left knee Genu varum of left lower extremity documented as of this encounter Visit Diagnoses Not on filedocumented in this encounter Additional Health Concerns Assessment Noted Time PHQ-2 Depression Total Score: 1 04/08/20 24 9:39 AM EDT documented as of this encounter Care Teams Sort Operations Supervisor Relationship Specialty Start Date End Date Manuel Del Angel MD 40 [place] [address] [email or web address] PCP - General 06/13/17 Michele Soto MD [address] [place] [address] Rheumatology 03/04/20 Abby Yoo MD [address] [address] Obstetrics and Gynecology 10/07/22 Blayne Cavanaugh MD [address] [address] [email or web address] Urology 04/18/23 documented as of this encounter Additional Source Comments The information contained in this document represents components of the legal health record. It is not the complete legal health record.[facility]
--- OUTSIDE RECORDS SUMMARY | 2025-05-07 06:07 | XMS_ITS | Encounter Summary ---
Author Organization [facility] Address [address] [email or web address] [facility] [address] [place] [address] Phone Care Team Providers Care Compounder Flavorings Name Role Phone Manuel Del Angel MD Primary Care Provider Michele Soto MD Unavailable Abby Yoo MD Unavailable [phone] Blayne Cavanaugh MD Unavailable Encounter Details Date Type Department Care Team (Late st Contact Info) Description 04/15/2023 Procedure Pass [facility], Ct Scan - [address] [address] Social History Tobacco Use Types Packs/Day Years Used Date Smoking Tobacco: Former Cigarettes 0.1 6 0 02/28/1956 - 02/27/1962 Smokeless Tobacco: Never Comments:smoked socially Alcohol Use Standard Drinks/Week Comments Yes 2 (1 standard drink = 0.6 oz pur e alcohol) sometimes Child or Family Care Answer Date Record ed Do you have problems with on e of the following making it difficult for you to work, study, or receive health care? No 03/09/2022 Education Answer Date Recorded Are you interested in help w ith more adult education (for example, completing high school, GED, job training, learning the Malay language, technical skills, or developing parenting skills)? [...] housing situation today? I have shira mendez 03/09/2022 How many times have you move [...] Encounter OR Admitting Dept - Virtual Department [address] [place] [address] Manoj Pate MD [address] [place] [address] Orthopedics & Sports Medicine, [facility] [place] [address] 06/14/2025 Procedure Pass [place] Admitting Dept - Virtual Department [address] [place] [address] 08/05/2025 8:30 AM EST Office Visit [facility] Internal Medicine 40 [place] [address] Manuel Del Angel MD 40 [place] [address] [email or web address] Scheduled Procedures Name Priority Associated Diagnoses Date/Ti me ARTHROPLASTY TOTAL KNEE Pain Primary osteoarthritis of left knee Genu varum of left lower extremity documented as of this encounter Visit Diagnoses Not on filedocumented in this encounter Additional Health Concerns Assessment Noted Time PHQ-2 Depression Total Score: 2 03/15/20 23 5:44 PM EDT documented as of this encounter Care Teams Compounder Flavorings Relationship Specialty Start Date End Date Manuel Del Angel MD 40 [place] [address] [email or web address] PCP - General 06/13/17 Michele Soto MD [address] [place] [address] Rheumatology 03/04/20 Abby Yoo MD [address] [address] Obstetrics and Gynecology 10/07/22 Blayne Cavanaugh MD [address] [address] [email or web address] Urology 04/18/23 documented as of this encounter Additional Source Comments The information contained in this document represents components of the legal health record. It is not the complete legal health record.[facility]
--- OUTSIDE RECORDS SUMMARY | 2025-05-07 06:07 | XMS_ITS | Encounter Summary ---
Author Organization [facility] Address [address] [employer] [facility] [address] [place] [address] Phone Care Team Providers Care Suspender Cutter Name Role Phone Manuel Del Angel MD Primary Care Provider Michele Soto MD Unavailable [phone] Abby Yoo MD Unavailable [phone] Blayne Cavanaugh MD Unavailable Encounter Details Date Type Department Care Team (Late st Contact Info) Description 08/26/2022 Procedure Pass [facility], Ct Scan - [address] [address] Social History Tobacco Use Types Packs/Day Years [...] high school, GED, job training, learning the Azeri language, technical skills, or developing parenting skills)? [...] Encounter OR Admitting Dept - Virtual Department [address] [place] [address] Manoj Pate MD [address] [place] [address] Orthopedics & Sports Medicine, [facility] [place] [address] 06/14/2025 Procedure Pass [place] Admitting Dept - Virtual Department [address] [place] [address] 08/05/2025 8:30 AM EST Office [facility] Internal Medicine 40 [place] [address] Manuel Del Angel MD 40 [place] [address] Scheduled Procedures Name Priority Associated Diagnoses Date/Ti me ARTHROPLASTY TOTAL KNEE Pain Primary osteoarthritis of left knee Genu varum of left lower extremity documented as of this encounter Visit Diagnoses Not on filedocumented in this encounter Additional Health Concerns Assessment Noted Time PHQ-2 Depression Total Score: 0 03/09/20 22 8:33 AM EDT documented as of this encounter Care Teams Suspender Cutter Relationship Specialty Start Date End Date Manuel Del Angel MD 40 [place] [address] [email or web address] PCP - General 06/13/17 Michele Soto MD 3377 [place] [address] Rheumatology 03/04/20 Abby Yoo MD [address] [address] Obstetrics and Gynecology 10/07/22 Blayne Cavanaugh MD [address] [address] [email or web address] Urology 04/18/23 documented as of this encounter Additional Source Comments The information contained in this document represents components of the legal health record. It is not the complete legal health record.[facility]
--- OUTSIDE RECORDS SUMMARY | 2025-05-07 06:07 | XMS_ITS | Encounter Summary ---
Author Organization [facility] Address [address] [employer] [facility] [address] [place] [address] Phone Care Team Providers Care Wheelman Name Role Phone Manuel Del Angel MD Primary Care Provider [phone] Michele Soto MD Unavailable Abby Yoo MD Unavailable [phone] Blayne Cavanaugh MD Unavailable [phone] Encounter Details Date Type Department Care Team (Late st Contact Info) Description 12/05/2023 Procedure Pass [place] Admitting Dept - Virtual Department 30 [place] [address] Social History Tobacco Use Types Packs/Day Years Used Date Smoking Tobacco: Former Cigarettes 0.1 6 0 02/28/1956 - 02/27/1962 Smokeless Tobacco: Never Comments:smoked socially Alcohol Use Standard Drinks/Week Comments Yes 2 (1 standard drink = 0.6 oz pur e alcohol) sometimes Home Health Assessment: Transportation Answer Date Recorded Lack of Transportation (Medical) No 12/07/2023 Lack of Transportation (Non-Medical) No 12/07/2023 Patient Unable or Declines to Respond No 12/07/2023 Child or Family Care Answer Date Record ed Do you have problems with on e of the following making it difficult for you to work, study, or receive health care? No 03/09/2022 Education Answer Date Recorded Are you interested in help w ith more adult education (for example, completing high school, GED, job training, learning the Estonian language, technical skills, or developing parenting skills)? [...] AM EDT documented as of this encounter Functional Status * Calculated C-SSRS Risk Score (Lifetime/Recent) Answer Date of Assessment Author No Risk Indicated 12/05/2023 6:17 PM EDT Mariela Alcantar, RN * [place] Suicide Severity Rating Scale (Screener/Recent Self-Report) Question Answer Date of Assessment Author 1. Wish to be (Past 1 Month) No 024 6:17 PM EDT Mariela Alcantar, RN 2. Non-Specific Active Suici kelley Thoughts (Past 1 Month) No 12/05/2023 6:17 PM EDT Mariela Alcantar , RN 6. Suicidal Behavior (Lifetime) No 04/08/202 4 6:17 PM EDT Mariela Alcantar RN documented as of this encounter Plan of Treatment Upcoming Encounters Date Type Department Care Team (Late st Contact Info) Description 06/14/2025 Hospital Encounter OR Admitting Dept - Virtual Department [address] [address] Manoj Pate MD [address] [place] [address] Orthopedics & Sports Medicine, [place] [address] 06/14/2025 Procedure Pass [place] Admitting Dept - Virtual Department [address] [address] 08/05/2025 8:30 AM EST Office Visit [facility] Internal Medicine 40 [place] [address] Manuel Del Angel MD 40 [place] [address] [email or web address] Scheduled Procedures Name Priority Associated Diagnoses Date/Ti me ARTHROPLASTY TOTAL KNEE Pain Primary osteoarthritis of left knee Genu varum of left lower extremity documented as of this encounter Visit Diagnoses Not on filedocumented in this encounter Additional Health Concerns Assessment Noted Time PHQ-2 Depression Total Score: 2 03/15/20 23 5:44 PM EDT documented as of this encounter Care Teams Wheelman Relationship Specialty Start Date End Date Manuel Del Angel MD 40 [place] [address] PCP - General 06/13/17 Michele Soto MD 3377 [place] [address] Rheumatology 03/04/20 Abby Yoo MD [address] [address] Obstetrics and Gynecology 10/07/22 Blayne Cavanaugh MD 100 [facility] [address] [address] [email or web address] [email or web address] 04/18/23 documented as of this encounter Additional Source Comments The information contained in this document represents components of the legal health record. It is not the complete legal health record.[facility]
--- OUTSIDE RECORDS SUMMARY | 2025-05-07 06:07 | XMS_ITS | Encounter Summary ---
Author Organization [facility] Address [address] [employer] [employer] [facility] [address] [place] [address] Phone Care Team Providers Care Early Head Start Teacher Name Role Phone Manuel Del Angel MD Primary Care Provider Michele Soto MD Unavailable Abby Yoo MD Unavailable [phone] Blayne Cavanaugh MD Unavailable [phone] Encounter Details Date Type Department Care Team (Late st Contact Info) Description 04/23/2024 Procedure Pass [facility], [address] [place] [address] Social History Tobacco Use Types Packs/Day Years [...] AM EDT documented as of this encounter Last Filed Vital Signs Vital Sign Reading Time Taken Comments Blood Pressure - - Pulse - - Temperature - - Respiratory Rate - - Oxygen Saturation - - Inhaled Oxygen Concentration - - Weight 77.1 kg (170 lb) 04/24/2024 3:08 PM EDT Height 165.1 cm (5' 5 ) 04/24/2024 3:08 PM EDT Body Mass Index 28.29 04/24/2024 3:08 PM EDT documented in this encounter Plan of Treatment Upcoming Encounters Date Type Department Care Team (Late st Contact Info) Description 06/14/2025 Hospital Encounter [place] Admitting Dept - Virtual Department 30 [place] [address] Manoj Pate MD [address] [place] [address] Orthopedics & Sports Medicine, [facility] [place] [address] [email or web address] 06/14/2025 Procedure Pass [place] Admitting Dept - Virtual Department [address] [place] [address] 08/05/2025 8:30 AM EST Office Visit [facility] Internal Medicine 40 [place] [address] Manuel Del Angel MD 40 [place] [address] [email or web address] Scheduled Procedures Name Priority Associated Diagnoses Date/Ti me ARTHROPLASTY TOTAL KNEE Pain Primary osteoarthritis of left knee Genu varum of left lower extremity documented as of this encounter Visit Diagnoses Not on filedocumented in this encounter Additional Health Concerns Assessment Noted Time PHQ-2 Depression Total Score: 1 04/08/20 24 9:39 AM EDT documented as of this encounter Care Teams Early Head Start Teacher Relationship Specialty Start Date End Date Manuel Del Angel MD 40 [place] [address] [email or web address] PCP - General 06/13/17 Michele Soto MD [address] [place] [address] Rheumatology 03/04/20 Abby Yoo MD [address] [address] Obstetrics and Gynecology 10/07/22 Blayne Cavanaugh MD [address] [phone] [email or web address] Urology 04/18/23 documented as of this encounter Additional Source Comments The information contained in this document represents components of the legal health record. It is not the complete legal health record.[facility]
--- OUTSIDE RECORDS SUMMARY | 2025-05-07 06:07 | XMS_ITS | Encounter Summary ---
Author Organization [facility] Address [address] [employer] [facility] [address] [place] [address] Phone Care Team Providers Care Supervisor Covering And Lining Name Role Phone Manuel Del Angel MD Primary Care Provider [phone] Michele Soto MD Unavailable Abby Yoo MD Unavailable [phone] Blayne Cavanaugh MD Unavailable Encounter Details Date Type Department Care Team (Late st Contact Info) Description 04/05/2023 Procedure Pass [facility], Ct Scan - [address] [address] Social History Tobacco Use Types Packs/Day Years [...] high school, GED, job training, learning the Czech language, technical skills, or developing parenting skills)? [...] Encounter OR Admitting Dept - Virtual Department [address] [place] [address] Manoj Pate MD [address] [place] [address] Orthopedics & Sports Medicine, [facility] [place] [address] 06/14/2025 Procedure Pass [place] Admitting Dept - Virtual Department [address] [place] [address] 08/05/2025 8:30 AM EST Office Visit [facility] Internal Medicine 40 [place] [address] Manuel Del Angel MD 40 [place] [address] [email or web address] Scheduled Procedures Name Priority Associated Diagnoses Date/Ti me ARTHROPLASTY TOTAL KNEE Pain Primary osteoarthritis of left knee Genu varum of left lower extremity documented as of this encounter Visit Diagnoses Not on filedocumented in this encounter Additional Health Concerns Assessment Noted Time PHQ-2 Depression Total Score: 2 03/15/20 23 5:44 PM EDT documented as of this encounter Care Teams Supervisor Covering And Lining Relationship Specialty Start Date End Date Manuel Del Angel MD 40 [place] [address] [email or web address] PCP - General 06/13/17 Michele Soto MD [address] [place] [address] Rheumatology 03/04/20 Abby Yoo MD [address] [address] Obstetrics and Gynecology 10/07/22 Blayne Cavanaugh MD [address] [address] [email or web address] Urology 04/18/23 documented as of this encounter Additional Source Comments The information contained in this document represents components of the legal health record. It is not the complete legal health record.[facility]
--- OUTSIDE RECORDS SUMMARY | 2025-05-07 06:07 | XMS_ITS | Encounter Summary ---
Author Organization [facility] Address [address] [employer] [facility] [address] [place] [address] Phone Care Team Providers Care Stone Grader Name Role Phone Manuel Del Angel MD Primary Care Provider [phone] Michele Soto MD Unavailable Abby Yoo MD Unavailable [phone] Blayne Cavanaugh MD Unavailable [phone] Encounter Details Date Type Department Care Team (Late st Contact Info) Description 06/07/2023 Procedure Pass [facility], Ct Scan - [address] [address] Social History Tobacco Use Types Packs/Day Years [...] high school, GED, job training, learning the Romansh language, technical skills, or developing parenting skills)? [...] Encounter OR Admitting Dept - Virtual Department [address] [place] [address] Manoj Pate MD [address] [place] [address] Orthopedics & Sports Medicine, [facility] [place] [address] 06/14/2025 Procedure Pass [place] Admitting Dept - Virtual Department [address] [place] [address] 08/05/2025 8:30 AM EST Office Visit [facility] Internal Medicine 40 [place] [address] Manuel Del Angel MD 40 [place] [address] [email or web address] Scheduled Procedures Name Priority Associated Diagnoses Date/Ti me ARTHROPLASTY TOTAL KNEE Pain Primary osteoarthritis of left knee Genu varum of left lower extremity documented as of this encounter Visit Diagnoses Not on filedocumented in this encounter Additional Health Concerns Assessment Noted Time PHQ-2 Depression Total Score: 2 03/15/20 23 5:44 PM EDT documented as of this encounter Care Teams Stone Grader Relationship Specialty Start Date End Date Manuel Del Angel MD 40 [place] [address] [email or web address] PCP - General 06/13/17 Michele Soto MD [address] [place] [address] Rheumatology 03/04/20 Abby Yoo MD [address] [address] Obstetrics and Gynecology 10/07/22 Blayne Cavanaugh MD [address] [address] [email or web address] Urology 04/18/23 documented as of this encounter Additional Source Comments The information contained in this document represents components of the legal health record. It is not the complete legal health record.[facility]
[2025-05-07] MEDS: Lactated Ringers 1,000 ML 100 ML IVCONT (06:42)
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
--- NOTE | 2025-05-07 07:03 | MHC.SHP ---
Pre-Procedural Eval Section A - 24 Hr Update-Section A only Date of Service: 05/07/25 The patient is an INPATIENT: No Changes since office visit: No Cold of Flu in the past 2 weeks, No New Medical Problems, No Changes in Medication and No Patient answered all questions The patient has been examined within 24 hours of the surgical procedure. The History & Physical has been completed within 30 days and I have reviewed it.: No Section B - Complete if H&P > 30 days Chief Complaint: L4-5 OLIF Allergies: Allergies Allergy/AdvReac Type Severity Reaction Status Date / Time codeine Allergy Severe Nausea and Verified 05/07/25 06:17 Vomiting hydrocodone Allergy Severe Nausea and Verified 05/07/25 06:17 Vomiting meperidine (Demerol) Allergy Severe Nausea and Verified 05/07/25 06:17 Vomiting morphine Allergy Severe nausea and Verified 05/07/25 06:17 vomiting oxycodone Allergy Severe Nausea and Verified 05/07/25 06:17 Vomiting ketorolac Allergy Nausea and Verified 05/07/25 06:17 Vomiting atorvastatin AdvReac Muscle Pain Verified 05/07/25 06:17 rosuvastatin AdvReac Muscle Pain Verified 05/07/25 06:17 Review of Systems Sugical H&P ROS: Negative: Constitution, Cardiovascular, Respiratory, Neurological, Psychiatric, Hem-Onc, Allergic/Immunologic, Gastrointestinal, Genitourinary, Musculoskeletal, Integumentary, Endocrine and Eyes/Ears/Nose/Throat Exam Surgical H&P Exam: Normal: HEENT, Normal: Heart, Normal: Lungs, Normal: Extremities, Normal: Abdomen, Normal: Skin and Normal: Neurological (awake, alert,oriented x 3 ) Plan Diagnosis/Plan: Unchanged L4-5 oblique lumbar interbody fusion Time Spent With Patient Time: Total time managing care of this patient today __6__ minutes.
--- NOTE | 2025-05-07 07:34 | PHA.MEDREC ---
Pharmacy Consult ? Medication Reconciliation Pharmacy has reviewed the medication reconciliation done by nursing. Also spoke to patient and she confirmed she takes potassium citrate 1 tablet twice a day and still uses ciclopirox once a day as face wash.
--- NOTE | 2025-05-07 09:52 | P.OP_ITS ---
Operative Note Operative Note Date of Service: 05/07/25 Narrative: Preop Diagnosis: 1.) L4-5 lumbar spondylolisthesis 2.) Back pain and neurogenic claudication Procedure: 1) L4-5 discectomy, arthrodesis and implantation cage through an anterolateral, retroperitoneal approach 2) L4-5 posterior instrumented fusion 3) allograft 4) Injection of 10 cc of Exparel at the transverse process for a muscular erector spinae block and additional Exparel in paravertebral tissue for postop management Consent Informed Consent was obtained for this operation. I have explained the nature, purpose and benefits of the operation. I have discussed the risks and benefit of the operation including possible complications or adverse events with patient/family. Alternative(s) were discussed with the patient with their relative benefits and risks as well as the consequences of not accepting the operation were included in obtaining consent. Surgeon: SAMAN SANDOVAL MD, PHD Procedure Assisted By: michael Merlos Description of Procedure This patient is suffering from back pain and neurogenic claudication due to a grade 2 L4-5 spondylolisthesis with the associated spinal stenosis. The patient was offered an oblique lumbar interbody fusion L4-5. The procedure and complications were explained. The patient was consented. The patient was brought to the operating room and endotracheally intubated. The patient was turned in a lateral position with the left side up. Prep and drape was done followed by timeout. A small incision was made in the left lower abdominal quadrant. The muscle fascia was opened after which the 3 muscle layer was split to enter the retroperitoneal space. Dilators were docked in the anterior one third of the L4- 5 disc space followed by a retractor. The retractor was opened. The L4-5 disc space was exposed. An annulotomy was done after which an elevator Vázquez was used to release the disc material from its endplates and to perforate the contralateral side. A partial discectomy was done. An 8 and 10 mm with 6 degree lordosis height trial implant was inserted. The discectomy was completed. The endplates were prepared. An 10 x 45 mm with 6 degree lordosis 4 web cage filled with allograft was inserted into the disc space under fluoroscopic guidance. This resulted in partial correction of the spondylolisthesis. The retractor was removed. Hemostasis was done. The incision was closed in 2 layers. Steri-Strips used to approximate incision. An OpSite with Tegaderm was used to cover the incision. This marked first part of the procedure. The patient was turned prone on the Dontrell spine table. 2C arms were installed for fluoroscopy. Prep and drape was done followed by a second timeout. Injection of 10 cc of Exparel at the bilateral L4 transverse processi for a muscular erector spinae block. Two paramedian incisions were made lateral from the L4 and L5 pedicles. The muscle fascia was opened after which the muscle layer was split bluntly to expose the posterolateral gutter. The following steps were taken. A pediguard tap was used to create a transpedicular trajectory into the vertebral body. A K wire was placed. A specially designed instrument was advanced over the K wire to decorticate the posterolateral gutter in preparation for the earth science professor olateral fusion. A pedicle screw was advanced over the K wire and the K wire was removed. The steps were done for the bilateral L4 and L5 pedicles. A total of 4 screws were placed with a diameter of 7.5 x 45 mm. Pedicle screws were connected with 45 mm gudelia bilaterally and locked down with locking caps, which led to a complete reduction of the spondylolisthesis. The extension towers were removed. The posterolateral gutter was filled with allograft to complete the posterolateral L4-5 fusion Hemostasis was done and the incision was closed in 2 layers. Steri-Strips were used to approximate the incision. An OpSite with tegaderm was used to cover the incision. All sponge and needle counts were correct. Patient was extubated and transferred in stable is to recovery room. Anesthesia: General Estimated Blood Loss (ml): 50 Duration of Surgery: 90 minutes Complications: None Postoperative Plan: Admit to inpatient for clinical observation
[2025-05-07 21:02] LABS: Appearance Urine Clear; Glucose Urine UA Negative (Negative); PH 6.5 (5.0-9.0); Specific Gravity - Urine 1.020 (1.005-1.025)
--- NOTE | 2025-05-08 02:52 | PC.NURSE ---
pt OOB for first time at 0. pt ambulated with walker x 1 assist to bathroom for successful void. No dizziness reported.
[2025-05-08 06:00] VITALS: BP 112/51; PULSE 81; RESP 18; TEMP 36.4; O2SAT 96
--- NOTE | 2025-05-08 07:58 | P.DS_ITS ---
DS: Providers Provider Date of Service: 05/08/25 Date of admission: 05/07/25 06:00 Date of discharge: 05/08/25 Primary care physician: Manuel Del Angel MD DS: Summary Time Attestation Discharge Coordination Time (in mins): 12 Quality: Safe Use of Opioids Does Pt have an Active Cancer Diagnosis on the Problem List?: No Quality: Stroke Does the patient have a stroke diagnosis?: No Physical Exam Vital Signs: Vital Signs: Last Vital Signs Temp 97.6 F 05/08/25 06:00 Pulse 81 05/08/25 06:00 Resp 18 05/08/25 06:00 BP 112/51 L 05/08/25 06:00 Pulse Ox 96 05/08/25 06:00 O2 Del Method Room Air 05/08/25 06:00 O2 Flow Rate 2.0 05/07/25 12:32 BMI result Body Mass Index 31.4 DS: Data Data Completed and Pending Labs on day of discharge: Laboratory Results - last 24 hr 05/07/25 20:45 Urine Color Yellow Urine Appearance Clear Urine pH 6.5 Ur Specific [place] 1.020 Urine Protein Negative Urine Glucose (UA) Negative Urine Ketones Negative Urine Blood Negative Urine Nitrite Negative Ur Leukocyte Esterase Negative Discharge Plan Discharge Anticipated Discharge Date/Time: 05/08/25 07:59 Patient Disposition: Home, Self-Care Discharge Diagnosis: s/p L4-5 OLIF Referrals: Manuel Del Angel MD [Primary Care Provider, Internal Medicine] - 1 Week Discharge Medications: New ibuprofen 600 mg tablet 600 mg PO Q8H PRN (Reason: pain) Qty: 30 1RF Continued acetaminophen [Acetaminophen Extra Strength] 500 mg Tablet 1,000 mg PO QID PRN (Reason: Pain) multivitamin Tablet 1 tab PO DAILY cetirizine [Zyrtec] 10 mg Tablet 10 mg PO DAILY PRN (Reason: Allergy Symptoms) cyanocobalamin (vitamin B-12) [Vitamin B-12] 1,000 mcg Tablet 1,000 mcg PO 3XW flaxseed oil 1,000 mg Capsule 1,000 mg PO DAILY Rx Instructions: administer with a meal potassium citrate 10 mEq (1,080 mg) tablet extended release 10 meq PO BID ciclopirox 1 % shampoo 1 ea topical DAILY Rx Instructions: USE ONCE A DAY FACEWASH cholecalciferol (vitamin D3) [Vitamin D3] 50 mcg (2,000 unit) Capsule 50 mcg PO DAILY vitamin E (dl, acetate) 180 mg (400 unit) Capsule 180 mg PO DAILY magnesium citrate 125 mg Capsule 250 mg PO DAILY turmeric root extract 1,053 mg Tablet 2,250 mg PO DAILY d-mannose 500 mg Capsule 500 mg PO DAILY Discharge Orders: Discharge Order (Routine); Ordered 05/08/25 Ordered By: Jin Duggan Diet: Advance to usual diet Activity on Discharge: As tolerated Stand Alone Forms: Patient Portal Discharge page Print Language: Malian Activity Restrictions/Additional Instructions: After your spinal surgery we ask you to observe the following restrictions/guidelines: Activity: It is normal to feel some discomfort as you increase your activity, but that will improve with time. We ask you avoid heavy lifting or acitivities that cause pain. As a general rule, 8lbs is a safe limit for lifting right after surgery. Walk as much as you feel comfortable but not to exhaustion. You will feel extra tired the first few days after surgery. Stay well hydrated. It is OK to walk up and down stairs You may return to driving when you are off narcotics (such as vicodin, oxycodone , dilaudid, etc), and you are back to normal functional capacity. If you have any concerns please check with office before driving. Return to work is specific to each patient and each surgery, so please speak with your doctor/PA at first follow up. Please bring paperwork such as FMLA at that time if you need it filled out. Medications: We recommend you take 1,000mg Tylenol every 8 hours for the first few weeks after surgery, if you do not have any liver issues and can tolerate this medication. Do not exceed 4,000mg daily. We will give you a short supply of narcotics after surgery (usually one weeks worth). If you need more please call the office but do not use more than prescribed. You will need to give our office 48 hours notice if you need narcotics refilled and we do not fill narcotics on weekends or evenings. If you are on a narcotic, it is a good idea to take a stool softener such as colace or senna to avoid constipation If you take blood thinner such as aspirin, Plavix, Coumadin, Effient, Eliquis etc for conditions such as Afib, DVT, Pulmonary embolus, coronary disease, stents etc please speak with your surgeon about specific details as to when you can resume these medications. You can resume NSAIDs on post op day 1 (eg: Motrin, Naproxen, etc). Follow up: Please call the office, , after surgery to arrange a 3 week follow up for wound check. Wound Care: You may remove your dressing on the first day after surgery. ?You may ?leave open to air. Please do not remove the steri strips underneath. they will fall off on their own in one week. IT IS NORMAL FOR THE WOUND TO OOZE OR BE BLOODY FOR A FEW DAYS AFTER SURGERY. ?IF THIS HAPPENS JUST PLACE NEW DRESSING OVER IT TO AVOID STAINING CLOTHES. You may shower on post op day # 1 We ask that you do not let the water soak the wound. If it does get wet, just towel dry lightly. Please do not scrub your incision or place any type of chemical/ointment on the wound. No tub baths, pools or jacuzzis for one month. If you have any leaking or redness from your wound, or fevers, please call the office. Care Plan Goals: Return to normal activity as tolerated Health Concerns: None Plan of Treatment: F/u in clinic in 2-3 weeks Assessment: POD: 1 Procedure: L4-5 OLIF Magnolia is a pleasant 79-year-old female who underwent L4-[address] Rogers yesterday. She was seen sitting upright in bed on [address] this morning. She reports that she had a difficult time with nausea/vomiting yesterday, but is feeling much better overall today. She feels like her appetite has returned, and she is anxiously awaiting breakfast this morning. She states that she has been up out of bed multiple times throughout the night to ambulate to the bathroom. She feels her pain overall is much better than it was preoperatively. She asked when she will be able to be discharged home today, and asked several questions regarding the postoperative healing course. Afebrile, vital signs stable. Patient is well appearing in NAD. No new neurological deficits. Back and lateral dressings have some staining without signs of hematoma. No active sanguineous drainage. Area is dry. Plan: Val 79-year-old female who underwent L4-[address] Rogers yesterday. She is progressing normally as expected. Patient meets criteria to be medically discharged home. He was seen at bedside with Dr. Rogers. I sent in an Rx to [facility] pharmacy for prescription strength Ibuprofen as she is unable to tolerate narcotic pain control and has thus far been doing well without it. Jin Rogers MD,PhD [facility]
--- NOTE | 2025-05-08 08:06 | HO.NEUROPN_ITS ---
Neurosurgery Operative Note Date of Service: 05/08/25 Narrative: POD: 1 Procedure: L4-5 OLIF Magnolia is a pleasant 79-year-old female who underwent L4-[address] Rogers yesterday. She was seen sitting upright in bed on 3 [address] this morning. She reports that she had a difficult time with nausea/vomiting yesterday, but is feeling much better overall today. She feels like her appetite has returned, and she is anxiously awaiting breakfast this morning. She states that she has been up out of bed multiple times throughout the night to ambulate to the bathroom. She feels her pain overall is much better than it was preoperatively. She asked when she will be able to be discharged home today, and asked several questions regarding the postoperative healing course. Afebrile, vital signs stable. Patient is well appearing in NAD. No new neurological deficits. Back and lateral dressings have some staining without signs of hematoma. No active sanguineous drainage. Area is dry. Plan: Pleasant 79-year-old female who underwent L4-[address] Rogers yesterday. She is progressing normally as expected. Patient meets criteria to be medically discharged home. He was seen at bedside with Dr. Rogers. I sent in an Rx to [facility] pharmacy for prescription strength Ibuprofen as she is unable to tolerate narcotic pain control and has thus far been doing well without it. Jin Rogers MD,PhD [facility]
--- NOTE | 2025-05-08 08:07 | HO.POSTANES ---
Post Anesthesia Evaluation Post Anesthesia Evaluation Date of Service: 05/08/25 Vital Signs: Vital Signs Temp Pulse Resp BP Pulse Ox O2 Del Method 05/08/25 06:00 97.6 F 81 18 112/51 L 96 Room Air 05/07/25 22:00 97.3 F 68 18 94/50 L 93 Room Air 05/07/25 20:09 97.3 F 74 18 105/56 L 91 L Room Air Anesthesia: General Mental Status: Awake Pain Control: Satisfactory Nausea/Vomiting: Severe (no longer vomiting but reports 4 hrs vomiting post procedure with scop patch) Hydration: Adequate Anesthesia-Related Issues: No Anes. Related Issues
--- NOTE | 2025-05-08 09:16 | MHC.CM.PN ---
IMM 05/08/25 S/P L4-5 OLMIRACLE Lives alone Independent with all functional mobility. PCP Manuel Del Angel. DP home self care. Patient has arranged for her son to provide transportation home. Discharge order has been received.
== END 2025-05-08 10:57 | disposition home or self-care (01) | DRG 451 ==
LOC: HO.SSSA 06:04 → HO.S3 11:44
PROVIDERS: Nurse Practitioner; Physician Assistant; Admitting Provider Neurological Surgery; PCP Internal Medicine; Visit Provider Neurological Surgery
PROC: 0SG00A0 Fusion of Lumbar Vertebral Joint with Interbody Fusion Device, Anterior Approach, Anterior Column, Open Approach (ICD-10-PCS; principal; 2025-05-07 07:30)
DX: M48.062 Spinal stenosis, lumbar region with neurogenic claudication (principal); M43.16 Spondylolisthesis, lumbar region; R11.2 Nausea with vomiting, unspecified; Z87.891 Personal history of nicotine dependence; Z79.899 Other long term (current) drug therapy
CPT/HCPCS: 36415; 80048; 81003; 85027; 86850; 86900; 86901; 93005; 97161; C1713; C1889; J0131; J0665; J0666; J0690; J1100; J1171; J1630; J2003; J2405; J2704; J3010; L8699

== ENCOUNTER → 2025-05-07 06:00 | Outpatient (BNV) | payer MEDICARE, SELFPAY | PROVIDERS: Admitting Provider Neurological Surgery; PCP Internal Medicine; Visit Provider Neurological Surgery | DX: M43.16 Spondylolisthesis, lumbar region (principal) | CPT/HCPCS: 20930; 22558; 22612; 22840; 22853; 99024; 99499 ==

== ENCOUNTER 2025-05-16 17:07 | Emergency (ER) | payer MEDICARE, SELFPAY ==
--- NOTE | ~2025-05-16 | XR_ITS ---
CLINICAL HISTORY: constipation Abdominal radiographs Comparison: None available Findings: There is a nonobstructive bowel gas pattern. Stool quantity is normal. No pneumoperitoneum or pneumatosis. No acute osseous or soft tissue abnormality. Impression: No acute findings. This document has been electronically signed by: Devika Nice MD on 05/16/2025 20:29:16
--- NOTE | ~2025-05-16 | CT_ITS ---
CLINICAL HISTORY: llq pain. Diverticulitis eval CT Abdomen and Pelvis W Contrast COMPARISON: CR - XR KUB - 05/16/25 18:34 EDT FINDINGS: Detail limited by artifacts. Small hiatal hernia. Normal liver. Normal spleen. Bilateral renal cysts and subcentimeter hypodensities too small to accurately characterize. No hydronephrosis. Normal adrenal glands. Normal pancreas. No visible cholelithiasis. No biliary dilation. Colonic diverticulosis without evidence of acute diverticulitis. Mild thickening of the gonzalez of the mid to distal ascending colon. No pneumatosis. Air-fluid levels in nondistended small bowel. No evidence of obstruction. The appendix is not identified, however, no secondary signs of acute appendicitis. Unremarkable bladder. Calcified uterine fibroid. No ascites. No pneumoperitoneum. No lymphadenopathy. No acute fracture. Status post posterior L4-L5 fusion and discectomy. Degenerative changes in the spine. No abdominal aortic aneurysm. Atherosclerosis. Fat-containing umbilical hernia. IMPRESSION: Ascending colon wall thickening, which could be due to underdistention or colitis. Air-fluid levels in nondistended small bowel, which could be due to enteritis or dysmotility. Nonemergent/incidental findings above. This document has been electronically signed by: Angel Woods MD on 05/17/2025 00:29:02
[2025-05-16 17:56] VITALS: BP 125/67; PULSE 97; RESP 18; TEMP 36.7; O2SAT 95; BMI 28.2
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
--- OUTSIDE RECORDS SUMMARY | 2025-05-16 18:51 | XMS_ITS | Encounter Summary ---
Author Organization [facility] Address [address] [facility] [address] [place] [phone] Phone Care Team Providers Care All Source Intelligence Name Role Phone Manuel Del Angel MD Primary Care Provider Michele Soto MD Unavailable [phone] Abby Yoo MD Unavailable Blayne Cavanaugh MD Unavailable [phone] Encounter Details Date Type Department Care Team (Late st Contact Info) Description 04/13/2024 Procedure Pass [facility], [address] [address] Social History Tobacco Use Types Packs/Day Years [...] Encounter OR Admitting Dept - Virtual Department [address] [place] [phone] Manoj Pate MD [address] [place] [address] Orthopedics & Sports Medicine, [facility] [place] [address] 06/14/2025 Procedure Pass [place] Admitting Dept - Virtual Department [address] [place] [id number] 08/05/2025 8:30 AM EST Office Visit [facility] Internal Medicine [address] [place] [address] Manuel Del Angel MD [address] [place] [address] [email or web address] Scheduled Procedures Name Priority Associated Diagnoses Date/Ti me ARTHROPLASTY TOTAL KNEE Pain Primary osteoarthritis of left knee Genu varum of left lower extremity documented as of this encounter Visit Diagnoses Not on filedocumented in this encounter Additional Health Concerns Assessment Noted Time PHQ-2 Depression Total Score: 1 04/08/20 24 9:39 AM EDT documented as of this encounter Care Teams All Source Intelligence Relationship Specialty Start Date End Date Manuel Del Angel MD [address] [place] [address] [email or web address] PCP - General 06/13/17 Michele Soto MD [address] [place] [address] Rheumatology 03/04/20 Abby Yoo MD [address] [address] Obstetrics and Gynecology 10/07/22 Blayne Cavanaugh MD [address] [address] [email or web address] Urology 04/18/23 documented as of this encounter Additional Source Comments The information contained in this document represents components of the legal health record. It is not the complete legal health record.[facility]
--- OUTSIDE RECORDS SUMMARY | 2025-05-16 18:51 | XMS_ITS | Encounter Summary ---
Author Organization [facility] Address [address] [facility] [address] [place] [address] Phone Care Team Providers Care Social Media Intern Name Role Phone Manuel Del Angel MD Primary Care Provider Michele Soto MD Unavailable [phone] Abby Yoo MD Unavailable Blayne Cavanaugh MD Unavailable [phone] Encounter Details Date Type Department Care Team (Late Contact Info) Description 03/10/2021 Procedure Pass [facility] [address] [place] [address] Social History Tobacco Use Types Packs/Day Years [...] OR Admitting Dept - Virtual Department [address] [place] [address] Manoj Pate MD [address] [place] [address] Orthopedics & Sports Medicine, [place] [address] 06/14/2025 Procedure Pass [place] Admitting Dept - Virtual Department [address] [place] [id number] 08/05/2025 8:30 AM EST Office Visit [facility] Internal Medicine [address] [place] [address] Manuel Del Angel MD [address] [place] [address] [email or web address] Scheduled Procedures Name Priority Associated Diagnoses Date/Ti [...] documented as of this encounter Care Teams Social Media Intern Relationship Specialty Start Date End Date Manuel Del Angel MD [address] [place] [address] PCP - General 06/13/17 Michele Soto MD [address] [place] [address] Rheumatology 03/04/20 Abby Yoo MD [address] [address] Obstetrics and Gynecology 10/07/22 Blayne Cavanaugh MD [address] [facility] [address] [place] [address] [email or web address] 04/18/23 documented as of this encounter Additional Source Comments The information contained in this document represents components of the legal health record. It is not the complete legal health record.[facility]
--- OUTSIDE RECORDS SUMMARY | 2025-05-16 18:51 | XMS_ITS | Encounter Summary ---
Author Organization [facility] Address [address] [employer] [facility] [address] [place] [address] Phone Care Team Providers Care Heavy Truck Mechanic Name Role Phone Manuel Del Angel MD Primary Care Provider Michele Soto MD Unavailable Abby Yoo MD Unavailable [phone] Blayne Cavanaugh MD Unavailable [phone] Encounter Details Date Type Department Care Team (Late st Contact Info) Description 04/15/2023 Procedure Pass [facility], Ct Scan - [address] [address] Social History Tobacco Use Types Packs/Day Years [...] high school, GED, job training, learning the Kinyarwanda language, technical skills, or developing parenting skills)? [...] Encounter OR Admitting Dept - Virtual Department [address] [place] [address] Manoj Pate MD [address] [place] [address] Orthopedics & Sports Medicine, [facility] [place] [address] 06/14/2025 Procedure Pass [place] Admitting Dept - Virtual Department [address] [place] [address] 08/05/2025 8:30 AM EST Office Visit [facility] Internal Medicine 40 [place] [address] Manuel Del Angel MD 40 [place] [address] [email or web address] Scheduled Procedures Name Priority Associated Diagnoses Date/Ti me ARTHROPLASTY TOTAL KNEE Pain Primary osteoarthritis of left knee Genu varum of left lower extremity documented as of this encounter Visit Diagnoses Not on filedocumented in this encounter Additional Health Concerns Assessment Noted Time PHQ-2 Depression Total Score: 2 03/15/20 23 5:44 PM EDT documented as of this encounter Care Teams Heavy Truck Mechanic Relationship Specialty Start Date End Date Manuel Del Angel MD 40 [place] [address] [email or web address] PCP - General 06/13/17 Michele Soto MD 3377 [place] [address] Rheumatology 03/04/20 Abby Yoo MD [address] [address] Obstetrics and Gynecology 10/07/22 Blayne Cavanaugh MD [address] [address] [email or web address] Urology 04/18/23 documented as of this encounter Additional Source Comments The information contained in this document represents components of the legal health record. It is not the complete legal health record.[facility]
--- OUTSIDE RECORDS SUMMARY | 2025-05-16 18:51 | XMS_ITS | Encounter Summary ---
Author Organization [facility] Address [address] [employer] [facility] [address] [place] [address] Phone Care Team Providers Care Charge Authorizer Name Role Phone Manuel Del Angel MD Primary Care Provider Michele Soto MD Unavailable [phone] Abby Yoo MD Unavailable [phone] Blayne Cavanaugh MD Unavailable Encounter Details Date Type Department Care Team (Late st Contact Info) Description 06/07/2023 Procedure Pass [facility], Ct Scan - [address] [address] Social History Tobacco Use Types Packs/Day Years [...] high school, GED, job training, learning the Bengali language, technical skills, or developing parenting skills)? [...] Encounter OR Admitting Dept - Virtual Department [address] [place] [address] Manoj Pate MD [address] [place] [address] Orthopedics & Sports Medicine, [facility] [place] [address] 06/14/2025 Procedure Pass [place] Admitting Dept - Virtual Department [address] [place] [address] 08/05/2025 8:30 AM EST Office Visit [facility] Internal Medicine 40 [place] [address] Manuel Del Angel MD 40 [place] [address] [email or web address] Scheduled Procedures Name Priority Associated Diagnoses Date/Ti me ARTHROPLASTY TOTAL KNEE Pain Primary osteoarthritis of left knee Genu varum of left lower extremity documented as of this encounter Visit Diagnoses Not on filedocumented in this encounter Additional Health Concerns Assessment Noted Time PHQ-2 Depression Total Score: 2 03/15/20 23 5:44 PM EDT documented as of this encounter Care Teams Charge Authorizer Relationship Specialty Start Date End Date Manuel Del Angel MD 40 [place] [address] [email or web address] PCP - General 06/13/17 Michele Soto MD 3377 [place] [address] Rheumatology 03/04/20 Abby Yoo MD [address] [address] Obstetrics and Gynecology 10/07/22 Blayne Cavanaugh MD [address] [address] [email or web address] Urology 04/18/23 documented as of this encounter Additional Source Comments The information contained in this document represents components of the legal health record. It is not the complete legal health record.[facility]
--- OUTSIDE RECORDS SUMMARY | 2025-05-16 18:51 | XMS_ITS | Encounter Summary ---
Author Organization [facility] Address [address] [employer] [place] [address] [place] [address] Phone Care Team Providers Care Track Leader Name Role Phone Manuel Del Angel MD Primary Care Provider [phone] Michele Soto MD Unavailable [phone] Abby Yoo MD Unavailable [phone] Blayne Cavanaugh MD Unavailable [phone] Encounter Details Date Type Department Care Team (Late st Contact Info) Description 12/05/2023 Procedure Pass OR Admitting Dept - Virtual Department 30 [place] [address] Social History Tobacco Use Types Packs/Day Years [...] high school, GED, job training, learning the South Sudanese language, technical skills, or developing parenting skills)? [...] 6:17 PM EDT Mariela Alcantar, RN * [place] Suicide Severity Rating Scale (Screener/Recent Self-Report) Question [...] OR Admitting Dept - Virtual Department [address] [place] [address] Manoj Pate MD [address] [place] [address] Orthopedics & Sports Medicine, [place] [address] 06/14/2025 Procedure Pass OR Admitting Dept - Virtual Department [address] [place] [address] 08/05/2025 8:30 AM EST Office Visit [facility] Internal Medicine 40 [place] [address] Manuel Del Angel MD 40 [place] [address] [email or web address] Scheduled Procedures Name Priority Associated Diagnoses Date/Ti me ARTHROPLASTY TOTAL KNEE Pain Primary osteoarthritis of left knee Genu varum of left lower extremity documented as of this encounter Visit Diagnoses Not on filedocumented in this encounter Additional Health Concerns Assessment Noted Time PHQ-2 Depression Total Score: 2 03/15/20 23 5:44 PM EDT documented as of this encounter Care Teams Track Leader Relationship Specialty Start Date End Date Manuel Del Angel MD 40 [place] [address] PCP - General 06/13/17 Michele Soto MD 3377 [place] [address] Rheumatology 03/04/20 Abby Yoo MD [address] [address] Obstetrics and Gynecology 10/07/22 Blayne Cavanaugh MD 100 [facility] [place] [address] [address] [email or web address] Urology 04/18/23 documented as of this encounter Additional Source Comments The information contained in this document represents components of the legal health record. It is not the complete legal health record.[facility]
--- OUTSIDE RECORDS SUMMARY | 2025-05-16 18:51 | XMS_ITS | Encounter Summary ---
Author Organization [facility] Address [address] [employer] [facility] [address] [place] [address] Phone Care Team Providers Care Supervisor Wood Room Name Role Phone Manuel Del Angel MD Primary Care Provider Michele Soto MD Unavailable Abby Yoo MD Unavailable [phone] Blayne Cavanaugh MD Unavailable [phone] Encounter Details Date Type Department Care Team (Late st Contact Info) Description 04/05/2023 Procedure Pass [facility], Ct Scan - [address] [address] Social History Tobacco Use Types Packs/Day Years [...] high school, GED, job training, learning the Macedonian language, technical skills, or developing parenting skills)? [...] Encounter OR Admitting Dept - Virtual Department [address] [place] [address] Manoj Pate MD [address] [place] [address] Orthopedics & Sports Medicine, [facility] [place] [address] 06/14/2025 Procedure Pass OR Admitting Dept - Virtual Department [address] [place] [address] 08/05/2025 8:30 AM EST Office Visit [facility] Internal Medicine 40 [place] [address] Manuel Del Angel MD 40 [place] [address] [email or web address] Scheduled Procedures [...] as of this encounter Care Teams Supervisor Wood Room Relationship Specialty Start Date End Date Manuel Del Angel MD 40 [place] [address] [email or web address] PCP - General 06/13/17 Michele Soto MD [address] [place] [address] Rheumatology 03/04/20 Abby Yoo MD [address] [address] Obstetrics and Gynecology 10/07/22 Blayne Cavanaugh MD [address] [address] [email or web address] Urology 04/18/23 documented as of this encounter Additional Source Comments The information contained in this document represents components of the legal health record. It is not the complete legal health record.[facility]
--- OUTSIDE RECORDS SUMMARY | 2025-05-16 18:51 | XMS_ITS | Clinical Summary ---
Author Organization [facility] Address [address] [address] Phone Care Team Providers Care Corporate Accounting Manager Name Role Phone Manuel Del Angel MD Primary Care Provider [phone] Michele Soto MD Unavailable [phone] Abby Yoo MD Unavailable Blayne Cavanaugh MD Unavailable Allergies Active Allergy [...] flashes and flushing. Evaluated by endocrinology and ORTHOTIC FITTER. Work-up unrevealing. Thyroid function and cortisol have been normal. Per Dr. Loaiza, low clinical suspicion for underlying endocrinopathy. Assessment & Plan (05/11/2023 1:36 PM EDT): States is improved after she started chadian flower pollen per ORTHOTIC FITTER. We discussed her neg quant gold for Tb and re fto pulm for her MOSS Recurrent UTI 01/31/2023 Primary osteoarthritis of left [...] second opinion. I will also CC her technology training associate in case they were interested in considering [...] second opinion. I will also CC her technology training associate in case they were interested in considering [...] post bronchial dilators. Spirometry. Then referral to [facility] pulmonology for further assessment and [...] Follows with nephrology, Dr. Andrew Robledo in [place] for medullary sponge kidney for which she [...] scan (03/2023) showing mildly thickened endometrium. Apparently scanning manager did not feel she needed further evaluation [...] back to previous anti-histamine & addition of chadian flower pollen, recommended by scanning manager, which is supposed to help with hot [...] coronary syndromes including unstable or severe angina, HI within 1 month, severe CHF, high grade [...] of chest pain on 08/16/2022, presented to [facility] ED with negative cardiac work-up: high-sensitivity [...] Plan (07/07/2022 8:42 AM EST): Referral to [facility] orthopedics for bilateral knee pain ongoing in the setting of OA knees. Pure hypercholesterolemia 02/24/2018 Familial hypercholesterolemia 05/14/2014 10/25/2023 Gastroesophageal reflux dise ase with esophagitis 03/27/2009 10/25/2023 Gastro-esophageal reflux dis ease with esophagitis 03/27/2009 10/25/2023 Encounters Date Type Department Care Team Description 05/07/2025 Orders Only [facility] Internal Medicine [address] [place] [address] ProviderYue MD 03/18/2025 Orders Only [facility] Internal Medicine [address] [place] [address] Provider, MD Yue from Last 3 Months [...] (Age 62) Daughter Alive Father (Age 56) HI Half-Brother Alive Mother (Age 89) THROAT CANCER [...] housing situation today? I have shira sing 06/05/2024 How many times have you move [...] Encounter OR Admitting Dept - Virtual Department [address] [place] [address] Manoj Pate MD [address] [place] [address] Orthopedics & Sports Medicine, [place] [address] [email or web address] 06/14/2025 Procedure Pass OR Admitting Dept - Virtual Department [address] [place] [address] 08/05/2025 8:30 AM EST Office Visit [facility] Internal Medicine 40 [place] [address] Manuel Del Angel MD 40 [place] [address] [email or web address] Scheduled Procedures Name Priority Associated Diagnoses Date/Ti [...] this topic Medical Devices Implanted Type Area Industrial Designer Device Identifier Shelf Expiration Date Model / Serial / Lot Prosthetic Joint Left Shoulder Prosthetic Joint Left: Shoulder Cement Bone 1x40 Standard - [id number] Implanted:Qt y: 1 on 12/05/2023 by Manoj Pate MD at [facility] Right: Knee [employer] [id number] 03/28/2026 [id number] / / [id number] F8 Box Component 67.5mm Femoral Knee Vanguard Interlok Hemphill Posterior Stabilized Open Cemented Right - [id number] Implanted:Qt y: 1 on 12/05/2023 by Manoj Pate MD at [facility] Right: Knee [employer] [id number] 07/30/2033 [id number] / / [id number] Knee Implant Component 34x8.5mm Prosthesis Patellar Vanguard Series A Asymmetric 3 Peg - [id number] Implanted:Qt y: 1 on 12/05/2023 by Manoj Pate MD at [facility] Right: Knee [employer] 04/28/2027 [id number] / / [id number] Knee Tray 71mm Plate Bone Primary Vanguard Hemphill I Beam Revision Interlock Cemented - [id number] Implanted:Qt y: 1 on 12/05/2023 by Manoj Pate MD at [facility] Right: Knee [employer] [id number] / / [id number] Knee Insert 71 [id number] Bearing Thania Stabilized - [id number] Implanted:Qt y: 1 on 12/05/2023 by Manoj Pate MD at [facility] Right: Knee [employer] [id number] 11/01/2028 [id number] / / [id number] Procedures Procedure Name Priority Date/Time Associated Diagnosis Comments OUTSIDE IMAGING Routine 05/07/2025 11:40 AM EDT OUTSIDE IMAGING Routine 03/15/2025 10:52 AM EDT BD DXA MONITORING Routine 05/17/2022 12: 46 PM EDT Localized osteoporosis without current pathological fracture from Last 3 Months or Most Recently Relevant to Health Maintenance Results * Outside Imaging Report Only (05/07/2025 11:40 AM EDT) Historical Provider IMG XR CHEST Final Res ult * Outside Imaging Report Only (03/15/2025 10:52 AM EDT) Historical Provider IMG XR CHEST Final Res ult * DXA Monitoring (05/17/2022 12:46 PM EDT) Anatomical Region Laterality Modality Bone Density Bone Density us Manuel Del Angel MD IMG BD BONE DENSITY DEXA Jaqui l Result from Last 3 Months or Most Recently Relevant to Health Maintenance Insurance [place] BLUE REPLACEMENT [facility] MEDICARE PPO BLUE REPLACEMENT [facility] MEDICARE PPO BLUE REPLACEMENT [facility] MEDICARE PPO BLUE REPLACEMENT [facility] MEDICARE PPO BLUE REPLACEMENT [facility] MEDICARE PPO BLUE REPLACEMENT [facility] MEDICARE PPO BLUE REPLAC[place]AC[place]UE RE[place]AC[place] Advance Directives For more information, please contact: [phone] (9AM - 5PM [facility], Tuesday-Tuesday) Documents on File Type Date Recorded Patient Threshing Machine Operator Expl anation Healthcare Proxy 12/07/2023 3:18 PM * Full Code (Latest Code Status on File) Date Activated Date Inactivated Comments 12/05/2023 11:36 AM Question Answer Comments Code Status Confirmed With: Patient Care Teams Corporate Accounting Manager Relationship Specialty Start Date End Date Manuel Del Angel MD 40 [place] [address] [email or web address] PCP - General 06/13/17 [place] [address] [place] [address] Rheumatology 03/04/20 Abby Yoo MD [address] [address] Obstetrics and Gynecology 10/07/22 Blayne Cavanaugh MD [address] [address] [email or web address] Urology 04/18/23 Additional Source Comments The information contained in this document represents components of the legal health record. It is not the complete legal health record.[facility]
--- OUTSIDE RECORDS SUMMARY | 2025-05-16 18:51 | XMS_ITS | Encounter Summary ---
Author Organization [facility] Address [address] [employer] [facility] [address] [place] [address] Phone Care Team Providers Care Finish Mixer Name Role Phone Manuel Del Angel MD Primary Care Provider Michlee Soto MD Unavailable Abby Yoo MD Unavailable [phone] Blayne Cavanaugh MD Unavailable [phone] Encounter Details Date Type Department Care Team (Late st Contact Info) Description 04/23/2024 Procedure Pass [facility], [address] [place] [address] Social History Tobacco Use Types Packs/Day Years [...] OR Admitting Dept - Virtual Department 30 [facility] [place] [address] Manoj Pate MD [address] [place] [address] Orthopedics & Sports Medicine, [facility] [place] [address] [email or web address] 06/14/2025 Procedure Pass OR Admitting Dept - Virtual Department [address] [place] [address] 08/05/2025 8:30 AM EST Office Visit [facility] Internal Medicine 40 [place] [address] Manuel Del Angel MD 40 [place] [address] [email or web address] Scheduled Procedures Name Priority Associated Diagnoses Date/Ti me ARTHROPLASTY TOTAL KNEE Pain Primary osteoarthritis of left knee Genu varum of left lower extremity documented as of this encounter Visit Diagnoses Not on filedocumented in this encounter Additional Health Concerns Assessment Noted Time PHQ-2 Depression Total Score: 1 04/08/20 24 9:39 AM EDT documented as of this encounter Care Teams Finish Mixer Relationship Specialty Start Date End Date Manuel Del Angel MD 40 [place] [address] [email or web address] PCP - General 06/13/17 Michele Soto MD [address] [place] [address] Rheumatology 03/04/20 Abby Yoo MD [address] [address] Obstetrics and Gynecology 10/07/22 Blayne Cavanaugh MD [address] [phone] [email or web address] Urology 04/18/23 documented as of this encounter Additional Source Comments The information contained in this document represents components of the legal health record. It is not the complete legal health record.[facility]
--- OUTSIDE RECORDS SUMMARY | 2025-05-16 18:51 | XMS_ITS | Encounter Summary ---
Author Organization [facility] Address [address] [employer] [facility] [address] [place] [address] Phone Care Team Providers Care Home Energy Consultant Name Role Phone Manuel Del Angel MD Primary Care Provider Michele Soto MD Unavailable Abby Yoo MD Unavailable [phone] Blayne Cavanaugh MD Unavailable Encounter Details Date Type Department Care Team (Late st Contact Info) Description 08/26/2022 Procedure Pass [facility], Ct Scan - [address] [address] Social History Tobacco Use Types Packs/Day Years [...] high school, GED, job training, learning the Kiswahili language, technical skills, or developing parenting skills)? [...] Encounter OR Admitting Dept - Virtual Department [address] [place] [address] Manoj Pate MD [address] [place] [address] Orthopedics & Sports Medicine, [facility] [place] [address] 06/14/2025 Procedure Pass OR Admitting Dept - Virtual Department [address] [place] [address] 08/05/2025 8:30 AM EST Office [facility] [place] Internal Medicine 40 [place] [address] Manuel Del Angel MD 40 [place] [address] Scheduled Procedures Name Priority Associated Diagnoses Date/Ti me ARTHROPLASTY TOTAL KNEE Pain Primary osteoarthritis of left knee Genu varum of left lower extremity documented as of this encounter Visit Diagnoses Not on filedocumented in this encounter Additional Health Concerns Assessment Noted Time PHQ-2 Depression Total Score: 0 03/09/20 22 8:33 AM EDT documented as of this encounter Care Teams Home Energy Consultant Relationship Specialty Start Date End Date Manuel Del Angel MD 40 [place] [address] [email or web address] PCP - General 06/13/17 Michele Soto MD [address] [place] [address] Rheumatology 03/04/20 Abby Yoo MD [address] [address] Obstetrics and Gynecology 10/07/22 Blayne Cavanaugh MD [address] [address] [email or web address] Urology 04/18/23 documented as of this encounter Additional Source Comments The information contained in this document represents components of the legal health record. It is not the complete legal health record.[facility]
--- OUTSIDE RECORDS SUMMARY | 2025-05-16 18:51 | XMS_ITS | Clinical Summary ---
Author Organization [facility] Address [address] [place] [phone] Phone Care Team Providers Care Car Salter Name Role Phone Manuel Del Angel MD Primary Care Provider [phone] Allergies Active Allergy Reactions Criticality Noted Date [...] time each day Active Mag Oxide-Vit D3-Turmeric [id number] MG-UNIT-MG tablet Take 1 capsule by mouth [...] second opinion. I will also CC her judicial assistant in case they were interested in considering [...] post bronchial dilators. Spirometry. Then referral to [facility] pulmonology for further assessment and [...] (01/31/2023): Last Assessment & Plan: Referral to [facility] orthopedics for bilateral knee pain [...] Visit [facility] [address] [facility] [address] [place] [phone] Andrew Robledo MD [address] [facility] [address] [place] [phone] Health Maintenance Due Date Last Done Comments Hepatitis B Vaccine (1 of 3 - Risk 3-dose series) 2003 Influenza Vaccine (#1) 2025 4, 07/07/2022, 06/16/2021, Additional history exists Pneumococcal Vaccine: 50+ Years Completed 5, 08/29/2008 Pneumococcal Vaccine: Peds ( 0 to 5 Years) and At-Risk Patients (6 to 49 Years) Discontinued 01/17/2015, 08/29/2008 Insurance [facility] Care Teams Car Salter Relationship Specialty Start Date End Date Mnauel Del Angel MD [address] [place] [address] PCP - General 09/08/20
--- OUTSIDE RECORDS SUMMARY | 2025-05-16 18:51 | XMS_ITS | Encounter Summary ---
Author Organization [facility] Address [address] [facility] [address] [place] [address] Phone Care Team Providers Care Fire Marshal Name Role Phone Manuel Del Angel MD Primary Care Provider [phone] Michele Soto MD Unavailable [phone] Abby Yoo MD Unavailable [phone] Blayne Cavanaugh MD Unavailable [phone] Encounter Details Date Type Department Care Team (Late st Contact Info) Description 05/07/2025 Orders Only [facility] Internal Medicine [address] [place] [address] Provider, MD Yue [address] [place] [address] Social History Tobacco Use Types Packs/Day Years [...] OR Admitting Dept - Virtual Department [address] [place] [address] Manoj Pate MD [address] [place] [address] Orthopedics & Sports Medicine, [place] [address] 06/14/2025 Procedure Pass OR Admitting Dept - Virtual Department [address] [place] [address] 08/05/2025 8:30 AM EST Office Visit [facility] Internal Medicine [address] [place] [address] Manuel Del Angel MD [address] [place] [address] Scheduled Procedures Name Priority Associated Diagnoses Date/Ti me ARTHROPLASTY TOTAL KNEE Pain Primary osteoarthritis of left knee Genu varum of left lower extremity documented as of this encounter Procedures Procedure Name Priority Date/Time Associated Diagnosis Comments OUTSIDE IMAGING Routine 05/07/2025 11:40 AM EDT documented in this encounter Results * Outside Imaging Report Only (05/07/2025 11:40 AM EDT) us Historical Provider MD CARRENO XR CHEST Final Res ult documented in this encounter Visit Diagnoses Not on filedocumented in this encounter Additional Health Concerns Assessment Noted Time PHQ-2 Depression Total Score: 0 06/05/20 24 11:18 AM EDT documented as of this encounter Care Teams Fire Marshal Relationship Specialty Start Date End Date Manuel Del Angel MD [address] [place] [address] PCP - General 06/13/17 Michele Soto MD [address] [place] [address] Rheumatology 03/04/20 Abby Yoo MD [address] [address] Obstetrics and Gynecology 10/07/22 Blayne Cavanaugh MD [address] [phone] [email or web address] Urology 04/18/23 documented as of this encounter Additional Source Comments The information contained in this document represents components of the legal health record. It is not the complete legal health record.[facility]
[2025-05-16 18:57] LABS: MANUAL DIFF FLAG NO
[2025-05-16 19:03] LABS: Hematocrit 39.0 % (37.0-47.0); Hemoglobin 13.2 g/dl (12.0-16.0); Imm Gran Abs Auto 0.10 X10*3/uL (0.00-0.03); Imm Gran Pct Auto 0.9 % (0.0-0.4); Lymphocytes Absolute Auto 2.2 X10*3/uL (1.2-4.9); Mean Corpuscular HGB Conc 33.8 g/dl (31.0-35.0); Mean Corpuscular Hemoglobin 31.6 pg (27.0-33.0); Mean Corpuscular Volume 93.3 fL (80.0-98.0); NRBC Abs Auto 0.000 X10*3/uL (0.0-0.012); NRBC Pct Auto 0.0 /100WBC (0.0-0.2); Platelet Count 386 X10*3/uL (160-400); Red Blood Count 4.18 X10*6/uL (4.20-5.50); White Blood Count 11.1 X10*3/uL (4.8-10.8)
[2025-05-16 19:13] LABS: Alanine Aminotransferase 25 U/L (0-31); Albumin Level 4.4 g/dL (3.5-5.0); Alkaline Phosphatase 86 U/L (39-117); Anion Gap 14 (12-20); Aspartate Amino Transferase 19 U/L (5-31); Blood Urea Nitrogen 26 mg/dL (9-16); Calcium 9.9 mg/dL (8.4-10.2); Carbon Dioxide 27 mmol/L (22-29); Chloride 105 mmol/L (96-108); Creatinine Clr Calc Pharmacy 41.1; Estimated Glomerular Filt Rate 48; Lipase 28 U/L (8-78); Magnesium 2.3 mg/dL (1.6-2.6); Potassium 4.4 mmol/L (3.3-5.1); Sodium 142 mmol/L (135-145); Total Protein 7.3 g/dL (6.5-8.0)
[2025-05-16 21:47] VITALS: BP 129/72; PULSE 85; RESP 18; TEMP 36.7; O2SAT 99
[2025-05-16] MEDS: iohexoL 350 MG/ML 100 ML INFUS..BTL 85 ML IV (23:15)
[2025-05-16 23:48] LABS: Appearance Urine Clear; Glucose Urine UA Negative (Negative); PH 6.0 (5.0-9.0); Specific Gravity - Urine >= 1.030 (1.005-1.025)
[2025-05-17 01:59] VITALS: BP 127/70; PULSE 87; RESP 18; TEMP 36.6; O2SAT 99
[2025-05-17 02:02] VITALS: BP 127/70; PULSE 87; RESP 18; TEMP 36.6; O2SAT 99
== END 2025-05-17 02:02 | disposition home or self-care (01) ==
PROVIDERS: Physician Assistant Medical; Emergency Provider Student in an Organized Health Care Education/Training Program; PCP Internal Medicine
DX: K52.9 Noninfective gastroenteritis and colitis, unspecified (principal); R10.32 Left lower quadrant pain; R11.2 Nausea with vomiting, unspecified; Z79.899 Other long term (current) drug therapy; Z87.891 Personal history of nicotine dependence
CPT/HCPCS: 36415; 74018; 74177; 80048; 80076; 81003; 83690; 83735; 85025; 96360; 99284; 99285; Q9967

== ENCOUNTER → 2025-05-16 18:00 | Outpatient (BNV) | payer MEDICARE, SELFPAY | PROVIDERS: Emergency Provider Student in an Organized Health Care Education/Training Program; PCP Internal Medicine; Visit Provider Radiology Diagnostic Radiology | DX: K59.00 Constipation, unspecified (principal) | CPT/HCPCS: 74018 ==

== ENCOUNTER 2025-07-11 08:39 | Outpatient (REF) | payer MEDICARE, SELFPAY ==
--- NOTE | ~2025-07-11 | XR_ITS ---
EXAMINATION: XR LUMBAR SPINE 4 OR MORE VIEWS CLINICAL INFORMATION: M48.062 - Spinal stenosis, lumbar region with neurogenic claudication COMPARISON: Radiographs on March 15, 2025 TECHNIQUE: AP and lateral views of the lumbar spine were obtained. Lateral views were obtained in flexion, extension, and neutral positions. FINDINGS: Interval placement of posterior fusion hardware and disc spacer at L4-L5. Similar mild scoliosis. Grade 1 retrolisthesis of 0.5 cm of T12 on L1 on the neutral and flexion positions mildly increases to 0.7 cm with extension. Grade 1 retrolisthesis of 0.7 cm of L1 on L2 is stable on neutral, flexion and extension. Grade 1 anterolisthesis of L4 on L5 of 0.7 cm, stable with flexion and extension, has improved from remeasurement of 1.1 cm prior to the surgery. Multilevel degenerative changes with disc space narrowing and marginal osteophytes. No acute compression fracture. Bilateral sacroiliac joints are intact. Extensive vascular calcifications. XR/XR lumbar spine 4V min IMPRESSION: Status post fusion hardware at L4-L5 with improvement of degree of grade 1 anterolisthesis of L4 on L5. Electronically signed by: Los Bajwa MD 07/11/2025 09:46 AM [facility]
== END 2025-07-11 08:40 | disposition home or self-care (01) ==
LOC: HO.HOSX 08:39
PROVIDERS: Visit Provider Physician Assistant
DX: Z47.89 Encounter for other orthopedic aftercare (principal); M48.062 Spinal stenosis, lumbar region with neurogenic claudication; Z98.1 Arthrodesis status
CPT/HCPCS: 72110

== ENCOUNTER 2025-07-11 08:52 | Outpatient (AMB) | payer BC, SELFPAY ==
--- NOTE | 2025-07-11 09:30 | HO.SPINEOV ---
Intake Visit Reasons: 2nd post op with xrays Intake Note: Ms. Rocha is here today for her 2nd post op with x-rays. Instructional Technology Coordinator Required: No Allergies codeine Allergy (Severe, Verified 05/16/25 17:58) Nausea and Vomiting hydrocodone Allergy (Severe, Verified 05/16/25 17:58) Nausea and Vomiting meperidine (Demerol) Allergy (Severe, Verified 05/16/25 17:58) Nausea and Vomiting morphine Allergy (Severe, Verified 05/16/25 17:58) nausea and vomiting oxycodone Allergy (Severe, Verified 05/16/25 17:58) Nausea and Vomiting ketorolac Allergy (Verified 05/16/25 17:58) Nausea and Vomiting atorvastatin Adverse Reaction (Verified 05/16/25 17:58) Muscle Pain rosuvastatin Adverse Reaction (Verified 05/16/25 17:58) Muscle Pain Assessment & Plan Assessment & Plan (1) S/P lumbar fusion: Code(s): Z98.1 - Arthrodesis status Category: Surgical Plan Procedure: L4-5 OLIF [facility] comes in today for her 2nd postop visit after having L4-[address] Rogers on 05/07/25. She reports that overall she has healed very well from her surgery. She still reports low-grade discomfort in her low back with increased activity such as grocery shopping, however she is still able to complete all of her activities of daily living without much issue. She primarily raised concerns regarding her left knee having a significant amount pain, and states that she is due to have a total knee done at [facility] in the near future. She obtained a set of dynamic lumbar spine x-rays during this visit which shows stable placement of her surgical construct with no changes from fluoroscopy. She did discuss how she had a fairly difficult time waking up from anesthesia, and is relatively concerned regarding this. She thinks it was because they used fentanyl to sedate her during her surgery. She asked several questions regarding the postoperative healing course, all of which I answered to the best of my ability. No new neurological deficits. The patient ambulates well and rises from a seated position without difficulty. She uses no assistive devices to ambulate. I would like to follow up with [facility] again 1 year out from her surgery with a CT scan to evaluate for fusion progress. In the interim I see no barriers to her scheduling her left-sided total knee replacement surgery. She asked that we send a copy of this note to her surgeon at [facility], so I have CC'd him. 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
--- OUTSIDE RECORDS SUMMARY | 2025-07-11 09:32 | XMS_ITS | Encounter Summary ---
Author Organization [facility] Address [address] [facility] [address] [place] [address] Phone Care Team Providers Care Complaint Analyst Name Role Phone Manuel Del Angel MD Primary Care Provider [phone] Michele Soto MD Unavailable Abby Yoo MD Unavailable [phone] Blayne Cavanaugh MD Unavailable [phone] Encounter Details Date Type Department Care Team (Late st Contact Info) Description 04/05/2023 Procedure Pass [facility], Ct Scan - [address] [address] Social History Tobacco Use Types Packs/Day Years [...] high school, GED, job training, learning the Italian language, technical skills, or developing parenting skills)? [...] Department Care Team (Latest Contact Info) Description 08/05/2025 8:30 AM EST Office Visit [facility] Internal Medicine [address] [place] [address] Manuel Del Angel MD 40 [place] [address] 08/09/2025 12:45 PM EST Appointment [address] [address] Manuel Del Angel MD [address] [place] [address] 10/04/2025 10:00 AM EST Office Visit [facility] Internal Medicine [address] [place] [address] Manuel Del Angel MD [address] [place] [address] 11/26/2025 9:00 AM EDT Office Visit [facility] Orthopedics & Sports Medicine [address] [place] [address] Aleks Sams PA-C [address] [place] [address] Orthopedics Sports [facility], [place] [address] [email or web address] 12/23/2025 Procedure Pass OR Admitting Dept - Virtual Department [address] [place] [address] 12/23/2025 12:48 PM EDT Hospital Encounter OR Admitting Dept - Virtual Department [address] [place] [address] Manoj Pate MD [address] [place] [address] Orthopedics Sports [facility], [place] [address] [email or web address] 12/23/2025 12:48 PM EDT - 12/23/2025 3:58 PM EDT Surgery OR Admitting Dept - Virtual Department [address] [place] [address] Manoj Pate MD [address] [place] [address] Orthoped[facility], [place] [address] [email or web address] ARTHROPLASTY TOTAL KNEE 01/07/2026 2:00 PM EDT Office Visit [facility] Orthopedics & Sports Medicine [address] [place] [address] Aleks Sams PA-C [address] [place] [address] [facility] [place] [address] [email or web address] 02/04/2026 10:30 AM EDT Office Visit [facility] Orthopedics & Sports Medicine [address] [place] [address] Aleks Sams PA-C [address] [place] [address] [facility] [place], [place] [address] [email or web address] Scheduled Procedures Name Priority Associated Diagnoses Date/Ti me ARTHROPLASTY TOTAL KNEE Pain Primary osteoarthritis of left knee Genu varum of left lower extremity 12/23/2025 12:48 PM EDT documented as of this encounter Visit Diagnoses Not on filedocumented in this encounter Additional Health Concerns Assessment Noted Time PHQ-2 Depression Total Score: 2 03/15/20 5:44 PM EDT documented as of this encounter Care Teams Complaint Analyst Relationship Specialty Start Date End Date Manuel Del Angel MD [address] [place] [address] PCP - General 06/13/17 Michele Soto MD [facility] [place] [address] Rheumatology 03/04/20 Abby Yoo MD [address] [address] Obstetrics and Gynecology 10/07/22 Blayne Cavanaugh MD [address] [phone] [email or web address] Urology 04/18/23 documented as of this encounter Additional Source Comments The information contained in this document represents components of the legal health record. It is not the complete legal health record.[facility]
--- OUTSIDE RECORDS SUMMARY | 2025-07-11 09:32 | XMS_ITS | Encounter Summary ---
Author Organization [facility] Address [address] [facility] [address] [place] [address] Phone Care Team Providers Care Middle School Principal Name Role Phone Manuel Del Angel MD Primary Care Provider [phone] Michele Soto MD Unavailable Abby Yoo MD Unavailable [phone] Blayne Cavanaugh MD Unavailable Encounter Details Date Type Department Care Team (Late st Contact Info) Description 06/07/2023 Procedure Pass [facility], Ct Scan - [address] [address] Social History Tobacco Use Types Packs/Day Years [...] high school, GED, job training, learning the Beninese language, technical skills, or developing parenting skills)? [...] Description 08/05/2025 8:30 AM EST Office Visit [facility] Internal Medicine [address] [place] [address] Manuel Del Angel MD [address] [place] [address] 08/09/2025 12:45 PM EST Appointment [address] [address] Manuel Del Angel MD [address] [place] [address] 10/04/2025 10:00 AM EST Office Visit [facility] Internal Medicine [address] [place] [address] Manuel Del Angel MD [address] [place] [address] 11/26/2025 9:00 AM EDT Office Visit [facility] Orthopedics & Sports Medicine [address] [place] [address] Aleks Sams PA-C [address] [place] [address] Orthopedics Sports [facility], [place] [address] [email or web address] 12/23/2025 Procedure Pass OR Admitting Dept - Virtual Department [address] [place] [address] 12/23/2025 12:48 PM EDT Hospital Encounter OR Admitting Dept - Virtual Department [address] [place] [address] Manoj Pate MD [address] [place] [address] Orthopedics Sports [facility], [place] [address] [email or web address] 12/23/2025 12:48 PM EDT - 12/23/2025 3:58 PM EDT Surgery OR Admitting Dept - Virtual Department [address] [place] [address] Manoj Pate MD [address] [place] [address] Orthopedics Sports [facility], [place] [address] [email or web address] ARTHROPLASTY TOTAL KNEE 01/07/2026 2:00 PM EDT Office Visit [facility] Orthopedics & Sports Medicine [address] [place] [address] Aleks Sams PA-C [address] [place] [address] [facility] [place] [address] [email or web address] 02/04/2026 10:30 AM EDT Office Visit [facility] Orthopedics & Sports Medicine [address] [place] [address] Aleks Sams PA-C [address] [place] [address] [facility], [place] [address] [email or web address] Scheduled Procedures Name Priority Associated [...] documented as of this encounter Care Teams Middle School Principal Relationship Specialty Start Date End Date Manuel Del Angel MD [address] [place] [address] PCP - General 06/13/17 Michele Soto MD [facility] [place] [address] Rheumatology 03/04/20 Abby Yoo MD [address] [address] Obstetrics and Gynecology 10/07/22 Blayne Cavanaugh MD [address] [phone] [email or web address] Urology 04/18/23 documented as of this encounter Additional Source Comments The information contained in this document represents components of the legal health record. It is not the complete legal health record.[facility]
--- OUTSIDE RECORDS SUMMARY | 2025-07-11 09:32 | XMS_ITS | Clinical Summary ---
Author Organization [facility] Address [address] [address] Phone Care Team Providers Care Assessment Director Name Role Phone Manuel Del Angel MD Primary Care Provider Michele Soto MD Unavailable [phone] Abby Yoo MD Unavailable Blayne Cavanaugh MD Unavailable [phone] Allergies Active Allergy Reactions Criticality Noted Date [...] flashes and flushing. Evaluated by endocrinology and ESTIMATING ENGINEER. Work-up unrevealing. Thyroid function and cortisol have been normal. Per Dr. Loaiza, low clinical suspicion for underlying endocrinopathy. Assessment & Plan (05/11/2023 1:36 PM EDT): States is improved after she started colombian flower pollen per ESTIMATING ENGINEER. We discussed her neg quant gold for [...] second opinion. I will also CC her parachute inspector in case they were interested in considering [...] second opinion. I will also CC her parachute inspector in case they were interested in considering [...] dilators. Spirometry. Then referral to [facility] pulmonology for further assessment and [...] Follows with nephrology, Dr. Andrew Robledo in [place] for medullary sponge kidney for which she [...] scan (03/2023) showing mildly thickened endometrium. Apparently obgyn nurse did not feel she needed further evaluation [...] back to previous anti-histamine & addition of colombian flower pollen, recommended by obgyn nurse, which is supposed to help with hot [...] coronary syndromes including unstable or severe angina, RI within 1 month, severe CHF, high grade [...] of chest pain on 08/16/2022, presented to [facility] ED with negative cardiac work-up: high-sensitivity [...] Plan (07/07/2022 8:42 AM EST): Referral to [facility] orthopedics for bilateral knee pain ongoing in the setting of OA knees. Pure hypercholesterolemia 02/24/2018 Familial hypercholesterolemia 05/14/2014 10/25/2023 Gastroesophageal reflux dise ase with esophagitis 03/27/2009 10/25/2023 Gastro-esophageal reflux dis ease with esophagitis 03/27/2009 10/25/2023 Encounters Date Type Department Care Team Description 07/08/2025 Orders Only [facility] Orthopedics & Sports Medicine [address] [place] [address] Aleks Sams PA-C Pre-op testing (Primary Dx) 05/17/2025 Orders Only [facility] Internal Medicine 40 [facility] [place] [address] Yue Sellers MD 05/07/2025 Orders Only [facility] Internal Medicine 40 [place] [address] Provider, MD Yue from Last 3 Months [...] (Age 60) Daughter Alive Father (Age 56) [place] Half-Brother Alive Mother (Age 89) THROAT CANCER [...] Description 08/05/2025 8:30 AM EST Office Visit [facility] Internal Medicine [address] [place] [address] aMnuel Del Angel MD [address] [place] [address] [email or web address] 08/09/2025 12:45 PM EST Appointment [address] [address] Manuel Del Angel MD [address] [place] [address] 10/04/2025 10:00 AM EST Office Visit [facility] Internal Medicine 40 [place] [address] Manuel Del Angel MD 40 [place] [address] 11/26/2025 9:00 AM EDT Office Visit [facility] Orthopedics & Sports Medicine [address] [place] [address] Aleks Sams PA-C [address] [place] [address] Orthopedics Sports [facility], [place] [address] [email or web address] 12/23/2025 Procedure Pass OR Admitting Dept - Virtual Department [address] [place] [address] 12/23/2025 12:48 PM EDT Hospital Encounter OR Admitting Dept - Virtual Department [address] [place] [address] Manoj Pate MD [address] [place], [place] [address]s [facility], [place] [address] [email or web address] 12/23/2025 12:48 PM EDT - 12/23/2025 3:58 PM EDT Surgery OR Admitting Dept - Virtual Department [address] [place] [address] Manoj Pate MD [address] [place] [address] Orthopedics Sports [facility], [place] [address] [email or web address] ARTHROPLASTY TOTAL KNEE 01/07/2026 2:00 PM EDT Office Visit [facility] Orthopedics & Sports Medicine [address] [place] [address] Aleks Sams PA-C [address] [place] [address] Sports [facility], [place] [address] [email or web address] 02/04/2026 10:30 AM EDT Office Visit [facility] Orthopedics & Sports Medicine [address] [place] [address] Aleks Sams PA-C [address] [place] [address] Orth[facility] [place] [address] [email or web address] Scheduled Procedures Name Priority Associated Diagnoses Date/Ti me ARTHROPLASTY TOTAL KNEE Pain Primary osteoarthritis of left knee Genu varum of left lower extremity 12/23/2025 12:48 PM EDT Health Maintenance Due Date Last Done Comments ZOSTER VACCINES (1 of 2) 1993 RSV VACCINE (1 - 1-dose 75+ series) 2018 Adult Td,Tdap Booster 06/04/2020 06/04/2010 INFLUENZA VACCINE (#1) 2025 , 07/05/2023, 07/07/2022, Additional history exists COVID-19 VACCINE ( season) 2025 DEPRESSION SCREENING 06/05/2025 06/05/2024 PNEUMOCOCCAL VACCINES (50+ years) Completed 01/17/2015, 08/29/2008 OSTEOPOROSIS SCREENING INITIAL (ONE-TIME) Completed 05/17/2022, 04/07/2018 HEPATITIS A VACCINES Aged Out No long er eligible based on patient's age to complete this topic HIB VACCINES Aged Out No longer eligi ble based on patient's age to complete this topic IPV VACCINES Aged Out No longer eligi ble based on patient's age to complete this topic MENINGOCOCCAL VACCINES (ACWY) Aged Out No longer eligible based on patient's age to complete this topic MENINGOCOCCAL VACCINES (B) Aged Out N o longer eligible based on patient's age to complete this topic Goals Goal Patient Goal Type Associated Problems Recent Progress Patient-Stated? Author Autogenerat ed Goal Care Plan Autogenerated Problem No [employer] Implanted Type Area Ship Runner Device Identifier Shelf Expiration Date Model / Serial / Lot Prosthetic Joint Left Shoulder Prosthetic Joint Left: Shoulder Cement Bone 1x40 Standard - [id number] Implanted:Qt y: 1 on 12/05/2023 by Manoj Pate MD at [facility] Right: Knee [employer] [id number] 03/28/2026 [id number] / / [id number] F8 Box Component 67.5mm Femoral Knee Vanguard Interlok [place]oe Posterior Stabilized Open Cemented Right - [id number] Implanted:Qt y: 1 on 12/05/2023 by Manoj Pate MD at [facility] Right: Knee [employer] [id number] 07/30/2033 [id number] / / [id number] Knee Implant Component 34x8.5mm Prosthesis Patellar Vanguard Series A Asymmetric 3 Peg - [id number] Implanted:Qt y: 1 on 12/05/2023 by Manoj Pate MD at [facility] Right: Knee [employer] 04/28/2027 [id number] / / [id number] Knee Tray 71mm Plate Bone Primary Vanguard Tip[place]oe I Beam Revision Interlock Cemented - [id number] Implanted:Qt y: 1 on 12/05/2023 by Manoj Pate MD at [facility] Right: Knee [employer] [id number] / / [id number] Knee Insert 71 15b02td Bearing Vanguard Stabilized - [id number] Implanted:Qt y: 1 on 12/05/2023 by Manoj Pate MD at [facility] Right: Knee [employer] [id number] 11/01/2028 [id number] / / [id number] Procedures Procedure Name Priority Date/Time Associated Diagnosis Comments OUTSIDE CT ABD/PELVIS REPORT ONLY Routine 05/16/2025 2:54 PM EDT OUTSIDE XR ABDOMEN REPORT ONLY Routine 05/16/2025 2:47 PM EDT OUTSIDE IMAGING Routine 05/07/2025 11:40 AM EDT BD DXA MONITORING Routine 05/17/2022 12: 46 PM EDT Localized osteoporosis without current pathological fracture from Last 3 Months or Most Recently Relevant to Health Maintenance Results * Outside CT Abd/pelvis Report Only (05/16/2025 2:54 PM EDT) us Historical Provider MD CARRENO CT ABD/PELVIS Final R esult * Outside XR Abdomen Report Only (05/16/2025 2:47 PM EDT) Historical Provider MD CARRENO XR ABDOMEN Final Res ult * Outside Imaging Report Only (05/07/2025 11:40 AM EDT) Historical Provider MD CARRENO XR CHEST Final Res ult * DXA Monitoring (05/17/2022 12:46 PM EDT) Anatomical Region Laterality Modality Bone Density Bone Density Manuel DRAKEG BD BONE DENSITY DEXA Jaqui l Result from Last 3 Months or Most Recently Relevant to Health Maintenance Additional Health Concerns Active Problems Noted Date Diagnosed Date Autogenerated Problem 07/08/2025 [place] [address] [address] [place] [address] MEDICARE PPO BLUE REPLACEMENT [facility] MEDICARE PPO [place] [address] [address] [place] [address] MEDICARE PPO BLUE REPLACEMENT [facility] MEDICARE PPO BLUE REPLACEMENT [facility] MEDICARE PPO BLUE REPLACEMENT [facility] MEDICARE PPO BLUE REPLAC[place] RE[place]ACEMENT Advance Directives For more information, please contact: [phone] (9AM - 5PM [facility], Tuesday-Tuesday) Documents on File Type Date Recorded Patient Director Print Expl anation Healthcare Proxy 12/07/2023 3:18 PM * Full Code (Latest Code Status on File) Date Activated Date Inactivated Comments 12/05/2023 11:36 AM Question Answer Comments Code Status Confirmed With: Patient Care Teams Assessment Director Relationship Specialty Start Date End Date Manuel Del Angel MD [address] [place] [address] PCP - General 06/13/[address] [facility] [place] [address] Rheumatology 03/04/20 Abby Yoo MD [address] [address] Obstetrics and Gynecology 10/07/22 Blayne Cavanaugh MD [address] [facility] [address] [place] [address] [email or web address] Urology 04/18/23 Additional Source Comments The information contained in this document represents components of the legal health record. It is not the complete legal health record.[facility]
--- OUTSIDE RECORDS SUMMARY | 2025-07-11 09:32 | XMS_ITS | Encounter Summary ---
Author Organization [facility] Address 399 [facility] [address] [place] [address] Phone Care Team Providers Care Contact Center Associate Name Role Phone Manuel Del Angel MD Primary Care Provider Michele Soto MD Unavailable [phone] Abby Yoo MD Unavailable Blayne Cavanaugh MD Unavailable [phone] Encounter Details Date Type Department Care Team (Late st Contact Info) Description 04/13/2024 Procedure Pass [facility], [address] [address] Social History Tobacco Use Types Packs/Day Years [...] Description 08/05/2025 8:30 AM EST Office Visit [facility] Internal Medicine 40 [place] [address] Manuel Del Angel MD 40 [place] [address] 08/09/2025 12:45 PM EST Appointment [address] [place] [address] Manuel Del Angel MD 40 [place] [address] 10/04/2025 10:00 AM EST Office Visit [facility] Internal Medicine [address] [place] [address] Manuel Del Angel MD 40 [place] [address] 11/26/2025 9:00 AM EDT Office Visit [facility] Orthopedics & Sports Medicine [address] [place] [address] Aleks Sams PA-C [address] [place] [address] Orthopedics & Sports [facility], [place] [address] [email or web address] 12/23/2025 Procedure Pass OR Admitting Dept - Virtual Department [address] [place] [address] 12/23/2025 12:48 PM EDT Hospital Encounter OR Admitting Dept - Virtual Department [address] [place] [address] Manoj Pate MD [address] [place] [address] Orthopedics & Sports [facility], [place] [address] [email or web address] 12/23/2025 12:48 PM EDT - 12/23/2025 3:58 PM EDT Surgery OR Admitting Dept - Virtual Department [address] [place] [address] Manoj Pate MD [address] [place] [address] Orthopedics Sports [facility], [place], [place] [id number] [email or web address] ARTHROPLASTY TOTAL KNEE 01/07/2026 2:00 PM EDT Office Visit [facility] Orthopedics & Sports Medicine [address] [place] [address] Aleks Sams PA-C [address] [place] [address] Orthopedics Sports [facility], [place], [place] [id number] [email or web address] 02/04/2026 10:30 AM EDT Office Visit [facility] Orthopedics & Sports Medicine [address] [place] [id number] Aleks Sams PA-C [address] [place] [address] Orthopedics Sports [facility], [place], [place] [id number] [email or web address] Scheduled Procedures Name Priority Associated Diagnoses Date/Ti me ARTHROPLASTY TOTAL KNEE Pain Primary osteoarthritis of left knee Genu varum of left lower extremity 12/23/2025 12:48 PM EDT documented as of this encounter Visit Diagnoses Not on filedocumented in this encounter Additional Health Concerns Assessment Noted Time PHQ-2 Depression Total Score: 1 04/08/20 24 9:39 AM EDT documented as of this encounter Care Teams Contact Center Associate Relationship Specialty Start Date End Date Manuel Del Angel MD [address] [place] [address] PCP - General 06/13/17 Michele Soto MD [facility] [place] [address] Rheumatology 03/04/20 Abby Yoo MD [address] [address] Obstetrics and Gynecology 10/07/22 Blayne Cavanaugh MD [address] [place] [address] [email or web address] Urology 04/18/23 documented as of this encounter Additional Source Comments The information contained in this document represents components of the legal health record. It is not the complete legal health record.[facility]
--- OUTSIDE RECORDS SUMMARY | 2025-07-11 09:32 | XMS_ITS | Encounter Summary ---
Author Organization [facility] Address 399 [facility] [address] [place] [address] Phone Care Team Providers Care Registrar Nurses' Registry Name Role Phone Manuel Del Angel MD Primary Care Provider Michele Soto MD Unavailable [phone] Abby Yoo MD Unavailable [phone] Blayne Cavanaugh MD Unavailable Encounter Details Date Type Department Care Team (Late st Contact Info) Description 08/26/2022 Procedure Pass [facility], Ct Scan - [address] [address] Social History Tobacco Use Types Packs/Day Years [...] high school, GED, job training, learning the [place]ivian language, technical skills, or developing parenting skills)? [...] Description 08/05/2025 8:30 AM EST Office Visit [facility] Internal Medicine 40 [place] [address] Manuel Del Angel MD [address] [place] [address] 08/09/2025 12:45 PM EST Appointment [address] [address] Manuel Del Angel MD [address] [place] [address] 10/04/2025 10:00 AM EST Office Visit [facility] Internal Medicine 40 [place] [address] Manuel Del Angel MD [address] [place] [address] 11/26/2025 9:00 AM EDT Office Visit [facility] Orthopedics & Sports Medicine [address] [place] [address] Aleks Sams PA-C [address] [place], [place] [address]s Sports [facility], [place] [address] [email or web address] 12/23/2025 Procedure Pass OR Admitting Dept - Virtual Department [address] [place] [address] 12/23/2025 12:48 PM EDT Hospital Encounter OR Admitting Dept - Virtual Department [address] [place] [address] Manoj Pate MD [address] [place], [place] [address]s Sports [facility], [place] [address] [email or web address] 12/23/2025 12:48 PM EDT - 12/23/2025 3:58 PM EDT Surgery OR Admitting Dept - Virtual Department [address] [place] [address] Manoj Pate MD [address] [place], [place] [address]s Sports [facility], [place] [address] [email or web address] ARTHROPLASTY TOTAL KNEE 01/07/2026 2:00 PM EDT Office Visit [facility] Orthopedics & Sports [address] [place] [address] [address] Aleks Sams PA-C [address] [place] [address] Sports [facility], [place], [place] [phone] [email or web address] 02/04/2026 10:30 AM EDT Office Visit [facility] Orthopedics & Sports Medicine [address] [place] [address] Aleks Sams PA-C [address] [place] [address] Orthopedics & Sports Medicine, [facility] [place] [address] [email or web address] Scheduled Procedures Name Priority Associated Diagnoses Date/Ti me ARTHROPLASTY TOTAL KNEE Pain Primary osteoarthritis of left knee Genu varum of left lower extremity 12/23/2025 12:48 PM EDT documented as of this encounter Visit Diagnoses Not on filedocumented in this encounter Additional Health Concerns Assessment Noted Time PHQ-2 Depression Total Score: 0 03/09/20 8:33 AM EDT documented as of this encounter Care Teams Registrar Nurses' Registry Relationship Specialty Start Date End Date Manuel Del Angel MD 40 [place] [address] PCP - General 06/13/17 Michele Soto MD [address] [place] [address] Rheumatology 03/04/20 Abby Yoo MD [address] [address] Obstetrics and Gynecology 10/07/22 Blayne Cavanaugh MD [address] [phone] [email or web address] Urology 04/18/23 documented as of this encounter Additional Source Comments The information contained in this document represents components of the legal health record. It is not the complete legal health record.[facility]
--- OUTSIDE RECORDS SUMMARY | 2025-07-11 09:32 | XMS_ITS | Encounter Summary ---
Author Organization [facility] Address 399 [facility] [address] [place] [address] Phone Care Team Providers Care Package Lift Operator Name Role Phone Manuel Del Angel MD Primary Care Provider Michele Soto MD Unavailable Abby Yoo MD Unavailable [phone] Blayne Cavanaugh MD Unavailable Encounter Details Date Type Department Care Team (Late st Contact Info) Description 04/15/2023 Procedure Pass [facility], Ct Scan - [address] [place] [address] [address] Social History Tobacco Use Types Packs/Day Years [...] high school, GED, job training, learning the Spanish language, technical skills, or developing parenting skills)? [...] Description 08/05/2025 8:30 AM EST Office Visit [facility] Internal Medicine 40 [place] [address] Manuel Del Angel MD 40 [place] [address] 08/09/2025 12:45 PM EST Appointment [address] [address] Manuel Del Angel MD 40 [place] [address] 10/04/2025 10:00 AM EST Office Visit [facility] Internal Medicine 40 [place] [address] Manuel Del Angel MD 40 [place] [address] 11/26/2025 9:00 AM EDT Office Visit [facility] Orthopedics & Sports Medicine [address] [place] [address] Aleks Sams PA-C [address] [place] [address] Orthopedics Sports [facility], [place] [address] [email or web address] 12/23/2025 Procedure Pass OR Admitting Dept - Virtual Department [address] [place] [address] 12/23/2025 12:48 PM EDT Hospital Encounter OR Admitting Dept - Virtual Department [address] [place] [address] Manoj Pate MD [address] [place] [address] Orthopedics Sports [facility], [place] [address] [email or web address] 12/23/2025 12:48 PM EDT - 12/23/2025 3:58 PM EDT Surgery OR Admitting Dept - Virtual Department [address] [place] [address] Manoj Pate MD [address] [place] [address] Orthopedics Sports [facility], [place] [address] [email or web address] ARTHROPLASTY TOTAL KNEE 01/07/2026 2:00 PM EDT Office Visit [facility] Orthopedics & Sports Medicine [address] [place] [address] Aleks Sams PA-C [address] [place] [address] [facility] [place] [place] [address] [email or web address] 02/04/2026 10:30 AM EDT Office Visit [facility] Orthopedics & Sports Medicine [address] [place] [address] Aleks Sams PA-C [address] [place] [address] Orth[facility] [place], [place] [address] [email or web address] Scheduled Procedures Name Priority Associated [...] documented as of this encounter Care Teams Package Lift Operator Relationship Specialty Start Date End Date Manuel Del Angel MD [address] [place] [address] PCP - General 06/13/17 Michele Soto MD [facility]7 [place] [address] Rheumatology 03/04/20 Abby Yoo MD [address] [address] Obstetrics and Gynecology 10/07/22 Blayne Cavanaugh MD [address] [phone] [email or web address] Urology 04/18/23 documented as of this encounter Additional Source Comments The information contained in this document represents components of the legal health record. It is not the complete legal health record.[facility]
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
--- OUTSIDE RECORDS SUMMARY | 2025-07-11 09:32 | XMS_ITS | Encounter Summary ---
Author Organization [facility] Address [address] [place] [address] Phone Care Team Providers Care Steam Table Associate Name Role Phone Manuel Del Angel MD Primary Care Provider Michele Soto MD Unavailable Abby Yoo MD Unavailable [phone] Blayne Cavanaugh MD Unavailable Encounter Details Date Type Department Care Team (Late st Contact Info) Description 07/08/2025 [facility] [address] [place] [address] [phone] Aleks Sams PA-C [address] [place] [address] Orthopedics & Sports Medicine, [facility]. [place], [place] [phone] [email or web address] Pre-op testing (Primary Dx) Social History Tobacco Use Types [...] Description 08/05/2025 8:30 AM EST Office Visit [facility] Internal Medicine [address] [place] [address] Manuel Del Angel MD [address] [place] [address] 08/09/2025 12:45 PM EST Appointment [address] [address] Manuel Del Angel MD [address] [place] [address] 10/04/2025 10:00 AM EST Office Visit [facility] Internal Medicine [address] [place] [address] Manuel Del Angel MD [address] [place] [address] 11/26/2025 9:00 AM EDT Office Visit [facility] Orthopedics & Sports Medicine [address] [place] [address] [phone] Aleks Sams PA-C [address] [place] [address] Orthopedics & Sports Medicine, [facility] [place] [address] [email or web address] 12/23/2025 Procedure Pass OR Admitting Dept - Virtual Department [address] [place] [address] 12/23/2025 12:48 PM EDT Hospital Encounter OR Admitting Dept - Virtual Department [address] [place] [address] Manoj Pate MD [address] [place] [address] Orthopedics & Sports [facility], [place] [address] [email or web address] 12/23/2025 12:48 PM EDT - 12/23/2025 3:58 PM EDT Surgery OR Admitting Dept - Virtual Department [address] [place] [address] Manoj Pate MD [address] [place] [address] Orthopedics Sports [facility], [place] [address] [email or web address] ARTHROPLASTY TOTAL KNEE 01/07/2026 2:00 PM EDT Office Visit [facility] Orthopedics & Sports Medicine [address] [place] [address] Aleks Sams PA-C [address] [place] [address] Orthopedics Sports [facility], [place] [address] [email or web address] 02/04/2026 10:30 AM EDT Office Visit [facility] Orthopedics & Sports Medicine [address] [place] [address] Aleks Sams PA-C [address] [place] [address] Orthopedics Sports [facility], [place], [place] [phone] [email or web address] Scheduled Orders Name Type Priority Associated Diagnoses Orde r Schedule CBC Lab Routine Pre-op testing Expected: 07/08/2025, Expires: 07/08/2026 Basic Metabolic Panel (BMP) Lab Routine Pre-op testing Expected: 07/08/2025, Expires: 07/08/2026 Hemoglobin A1c Lab Routine Pre-op testing Expected: 07/08/2025, Expires: 07/08/2026 ECG 12-LEAD ECG Routine Pre-op testing Expected: 07/08/2025, Expires: 10/08/2025 Scheduled Procedures Name Priority Associated Diagnoses Date/Ti me ARTHROPLASTY TOTAL KNEE Pain Primary osteoarthritis of left knee Genu varum of left lower extremity 12/23/2025 12:48 PM EDT documented as of this encounter Goals Goal Patient Goal Type Associated Problems Recent Progress Patient-Stated? Author Autogenerat ed Goal Care Plan Autogenerated Problem No Dona Taveras documented as of this encounter Visit Diagnoses Diagnosis Pre-op testing- Primary Unspecified pre-operative examination Pain Generalized pain Primary osteoarthritis of left knee Genu varum of left lower extremity documented in this encounter Additional Health Concerns Active Problems Noted Date Diagnosed Date Autogenerated Problem 07/08/2025 Assessment Noted Time PHQ-2 Depression Total Score: 0 06/05/20 24 11:18 AM EDT documented as of this encounter Care Teams Steam Table Associate Relationship Specialty Start Date End Date Manuel Del Angel MD [address] [place] [address] [email or web address] PCP - General 06/13/17 Michele Soto MD [address] [place] [address] Rheumatology 03/04/20 Abby Yoo MD [address] [address] Obstetrics and Gynecology 10/07/22 Blayne Cavanaugh MD [address] [phone] [email or web address] U[facility] 04/18/23 documented as of this encounter Additional Source Comments The information contained in this document represents components of the legal health record. It is not the complete legal health record.[facility]
--- OUTSIDE RECORDS SUMMARY | 2025-07-11 09:32 | XMS_ITS | Encounter Summary ---
Author Organization [facility] Address [address] [facility] [place] [address] [place] [address] Phone Care Team Providers Care Food Preparation Worker Name Role Phone Manuel Del Angel MD Primary Care Provider Michele Soto MD Unavailable Abby Yoo MD Unavailable [phone] Blayne Cavanaugh MD Unavailable [phone] Encounter Details Date Type Department Care Team (Late st Contact Info) Description 04/23/2024 Procedure Pass [facility], [address] [place] [address] Social History Tobacco Use Types Packs/Day Years [...] Description 08/05/2025 8:30 AM EST Office Visit [facility] Internal Medicine [address] [place] [address] Manuel Del Angel MD [address] [place] [address] 08/09/2025 12:45 PM EST Appointment [address] [address] Manuel Del Angel MD [address] [place] [address] 10/04/2025 10:00 AM EST Office Visit [facility] Internal Medicine [address] [place] [address] Manuel Del Angel MD [address] [place] [address] 11/26/2025 9:00 AM EDT Office Visit [facility] Orthopedics & Sports Medicine [address] [place] [address] Aleks Sams PA-C [address] [place] [address] Orthopedics & Sports Medicine, [place] [address] [email or web address] 12/23/2025 Procedure Pass OR Admitting Dept - Virtual Department [address] [place] [address] 12/23/2025 12:48 PM EDT Hospital Encounter OR Admitting Dept - Virtual Department [address] [place] [address] Manoj Pate MD [address] [place] [address] Orthopedics & Sports Medicine, [place] [address] [email or web address] 12/23/2025 12:48 PM EDT - 12/23/2025 3:58 PM EDT Surgery OR Admitting Dept - Virtual Department [address] [place] [address] Manoj Pate MD [address] [place] [address] Orthopedics & Sports Medicine, [place], [place] [phone] [email or web address] ARTHROPLASTY TOTAL KNEE 01/07/2026 2:00 PM EDT Office Visit [facility] Orthopedics & Sports Medicine [address] [place] [address] [phone] Aleks Sams PA-C [address] [place] [address] Orthopedics Sports [facility], [place], [place] [phone] [email or web address] 02/04/2026 10:30 AM EDT Office Visit [facility] Orthopedics & Sports Medicine [address] [place] [address] [phone] Aleks Sams PA-C [address] [place] [address] Orthopedics Sports [facility], [place], [place] [phone] [email or web address] Scheduled Procedures Name Priority Associated [...] documented as of this encounter Care Teams Food Preparation Worker Relationship Specialty Start Date End Date Manuel Del Angel MD [address] [place] [address] PCP - General 06/13/17 Michele Soto MD [address] [place] [phone] Rheumatology 03/04/20 Abby Yoo MD [address] [address] Obstetrics and Gynecology 10/07/22 Blayne Cavanaugh MD 100 [facility] [address] [place] [phone] [email or web address] Urology 04/18/23 documented as of this encounter Additional Source Comments The information contained in this document represents components of the legal health record. It is not the complete legal health record.[facility]
--- OUTSIDE RECORDS SUMMARY | 2025-07-11 09:33 | XMS_ITS | Encounter Summary ---
Author Organization [facility] Address [address] [facility] [address] [place] [address] Phone Care Team Providers Care Life Skills Worker Name Role Phone Manuel Del Angel MD Primary Care Provider Michele Soto MD Unavailable Abby Yoo MD Unavailable [phone] Blayne Cavanaugh MD Unavailable [phone] Encounter Details Date Type Department Care Team (Latest Contact Info) Description 07/12/2022 Transcribe Orders [facility] [address] [place] [address] Cooper España MD [address] [place] [address] [email or web address] Advice given about 2019 novel coronavirus by [...] high school, GED, job training, learning the Dutch language, technical skills, or developing parenting skills)? [...] Description 08/05/2025 8:30 AM EST Office Visit [facility] Internal Medicine [address] [place] [address] Manuel Del Angel MD [address] [place] [address] [email or web address] 08/09/2025 12:45 PM EST Appointment [address] [address] Manuel Del Angel MD [address] [place] [address] 10/04/2025 10:00 AM EST Office Visit [facility] Internal Medicine [address] [place] [address] Manuel Del Angel MD [address] [place] [address] 11/26/2025 9:00 AM EDT Office Visit [facility] Orthopedics & Sports Medicine [address] [place] [address] Aleks Sams PA-C [address] [place] [address] Orthopedics Sports [facility], [place] [address] [email or web address] 12/23/2025 Procedure Pass OR Admitting Dept - Virtual Department [address] [place] [address] 12/23/2025 12:48 PM EDT Hospital Encounter OR Admitting Dept - Virtual Department [address] [place] [address] Manoj Pate MD [address] [place] [address] Orthopedics Sports [facility], [place], [place] [phone] [email or web address] 12/23/2025 12:48 PM EDT - 12/23/2025 3:58 PM EDT Surgery OR Admitting Dept - Virtual Department [address] [place] [address] Manoj Pate MD [address] [place] [address] Orthopedics Sports [facility], [place], [place] [phone] [email or web address] ARTHROPLASTY TOTAL KNEE 01/07/2026 2:00 PM EDT Office Visit [facility] Orthopedics & Sports Medicine [address] [place] [address] [phone] Aleks Sams PA-C [address] [place] [address] Orthopedics & [facility] [place] [place] [address] [email or web address] 02/04/2026 10:30 AM EDT Office Visit [facility] Orthopedics & Sports Medicine [address] [place] [address] Aleks Sams PA-C [address] [place] [address] Orthopedics & Sports [place], [place] [address] [email or web address] Scheduled Procedures Name Priority Associated Diagnoses Date/Ti me ARTHROPLASTY TOTAL KNEE Pain Primary osteoarthritis of left knee Genu varum of left lower extremity 12/23/2025 12:48 PM EDT documented as of this encounter Results * COVID-19 PCR Order (07/27/2022 9:48 AM EST) COVID-19 Comment [id number] [facility] COVID Testing Status Specimen received in analyzing lab. Results should be available within 24 to 48 hrs. [facility] Other 07/27/2022 9:48 AM EST 07/27/2022 11:39 AM EST us Cooper España MD LAB GENERAL ORDERABLES Final Res ult [facility] [address] [place] [phone] [place] [address] documented in this encounter Visit Diagnoses Diagnosis Advice given about 2019 novel coronavirus by telephone- Primary Pain Generalized pain Primary osteoarthritis of left knee Genu varum of left lower extremity documented in this encounter Additional Health Concerns Assessment Noted Time PHQ-2 Depression Total Score: 0 03/09/20 22 8:33 AM EDT documented as of this encounter Care Teams Life Skills Worker Relationship Specialty Start Date End Date Manuel Del Angel MD [address] [place] [address] [email or web address] PCP - General 06/13/17 Michele Soto MD [address] [place] [address] Rheumatology 03/04/20 Abby Yoo MD [address] [address] Obstetrics and Gynecology 10/07/22 Blayne Cavanaugh MD [address] [phone] [email or web address] Urology 04/18/23 documented as of this encounter Additional Source Comments The information contained in this document represents components of the legal health record. It is not the complete legal health record.[facility]
--- OUTSIDE RECORDS SUMMARY | 2025-07-11 09:33 | XMS_ITS | Encounter Summary ---
Author Organization [facility] Address [address] [facility] [address] [place] [address] Phone Care Team Providers Care Space Planner Name Role Phone Manuel Del Angel MD Primary Care Provider [phone] Michele Soto MD Unavailable Abby Yoo MD Unavailable [phone] Blayne Cavanaugh MD Unavailable [phone] Encounter Details Date Type Department Care Team (Late st Contact Info) Description 12/05/2023 Procedure Pass OR Admitting Dept - Virtual Department [address] [place] [address] Social History Tobacco Use Types Packs/Day Years [...] high school, GED, job training, learning the Slovak language, technical skills, or developing parenting skills)? [...] is your housing situation today? I have sihra sing 03/09/2022 How many times have you [...] 6:17 PM EDT Mariela Alcantar, RN * [place] Suicide Severity Rating Scale (Screener/Recent Self-Report) Question Answer Date of Assessment Author 1. Wish to be (Past 1 Month) No 024 6:17 PM EDT Mariela Alcantar, RN 2. Non-Specific Active Suici kelley Thoughts (Past 1 Month) No 12/05/2023 6:17 PM EDT Mariela Alcantar , RN 6. Suicidal Behavior (Lifetime) No 6:17 PM EDT Mariela Alcantar RN documented as of this encounter Plan of Treatment Upcoming Encounters Date Type Department Care Team (Latest Contact Info) Description 08/05/2025 8:30 AM EST Office Visit [facility] Internal Medicine [address] [place] [address] Manuel Del Angel MD [address] [place] [address] 08/09/2025 12:45 PM EST Appointment [address] [address] Manuel Del Angel MD [address] [place] [address] 10/04/2025 10:00 AM EST Office Visit [facility] Internal Medicine [address] [place] [address] Manuel Del Angel MD [address] [place] [address] [phone] 11/26/2025 9:00 AM EDT Office Visit [facility] Orthopedics & Sports Medicine [address] [place] [address] Aleks Sams PA-C [address] [place] [address] Orthopedics & Sports [facility] [place], [place] [phone] [email or web address] 12/23/2025 Procedure Pass OR Admitting Dept - Virtual Department [address] [place] [address] 12/23/2025 12:48 PM EDT Hospital Encounter OR Admitting Dept - Virtual Department [address] [place] [address] Manoj Pate MD [address] [place] [address] Orthopedics & Sports Medicine, [place] [address] [email or web address] 12/23/2025 12:48 PM EDT - 12/23/2025 3:58 PM EDT Surgery OR Admitting Dept - [facility] Department [address] [place] [address] Manoj Pate MD [address] [place] [address] Orthopedics & Sports [facility], [place] [address] [email or web address] ARTHROPLASTY TOTAL KNEE 01/07/2026 2:00 PM EDT Office Visit [facility] Orthopedics & Sports Medicine [address] [place] [address] Aleks Sams PA-C [address] [place] [address] Orthopedics Sports [facility], [place], [place] [phone] [email or web address] 02/04/2026 10:30 AM EDT Office Visit [facility] Orthopedics & Sports Medicine [address] [place] [address] Aleks Sams PA-C [address] [place] [address] Orthopedics Sports [facility], [place], [place] [phone] [email or web address] Scheduled Procedures Name Priority Associated Diagnoses Date/Ti me ARTHROPLASTY TOTAL KNEE Pain Primary osteoarthritis of left knee Genu varum of left lower extremity 12/23/2025 12:48 PM EDT documented as of this encounter Visit Diagnoses Not on filedocumented in this encounter Additional Health Concerns Assessment Noted Time PHQ-2 Depression Total Score: 2 03/15/20 23 5:44 PM EDT documented as of this encounter Care Teams Space Planner Relationship Specialty Start Date End Date Manuel Del Angel MD [address] [place] [address] [email or web address] PCP - General 06/13/17 Michele Soto MD [address] [place] [address] Rheumatology 03/04/20 Abby Yoo MD [address] [address] Obstetrics and Gynecology 10/07/22 Blyane Cavanaugh MD [address] [phone] [email or web address] Urology 04/18/23 documented as of this encounter Additional Source Comments The information contained in this document represents components of the legal health record. It is not the complete legal health record.[facility]
== END 2025-07-11 09:59 | disposition home or self-care (01) ==
LOC: HO.HNS 08:53
PROVIDERS: PCP Internal Medicine; Visit Provider Physician Assistant
DX: Z98.1 Arthrodesis status (principal)
CPT/HCPCS: 99024

== ENCOUNTER → 2025-07-11 08:58 | Outpatient (BNV) | payer BC, SELFPAY | PROVIDERS: Visit Provider Radiology Body Imaging | DX: M48.062 Spinal stenosis, lumbar region with neurogenic claudication (principal) | CPT/HCPCS: 72110 ==